=== PATIENT | male | born 1975 | race Caucasian/White ===

== ENCOUNTER 2016-11-27 03:23 | Observation (INO) | payer OTHER ==
[2016-11-27] VITALS (8 sets, daily range): BP systolic 103–114; BP diastolic 69–82; PULSE 84–107; RESP 18–22; O2SAT 94–98
[~2016-11-27] VITALS: Ht 175.3 cm; Wt 61.7 kg
[~2016-11-27 03:23] MED LIST: HALO2TAB PO; LORA-303 PO; METO-301 PO; ZOF8 PO
[2016-11-27] MEDS ORDERED: OXYC-465 PO (04:56)
[2016-11-27] MEDS ORDERED: DICY10CA56 PO (04:56)
[2016-11-27] MEDS ORDERED: ONDA-54 PO (04:56)
[2016-11-27] MEDS ORDERED: LISI10TA PO (04:56)
[2016-11-27] MEDS ORDERED: Alum-Mag Hydrox-Simeth 30 mL Suspension PO PRN (05:15)
[2016-11-27] MEDS ORDERED: Senna-Docusate 8.6-50 mg Tablet PO PRN (05:15)
[2016-11-27] MEDS ORDERED: Polyethylene Glycol (PEG) 17 Gm Powder PO PRN (05:15)
--- NOTE | 2016-11-27 05:36 | PCM.HPMED ---
Subjective Date of Service Nov 27, 2016 Primary Provider: Admitting Physician: Freddy Morse MD Primary Care Physician: Nopnadya Attending Physician: Freddy Morse MD Admit Status: Direct Admit (From [facility]) Chief Complaint: Dyspnea History of Present Illness: Gerald Sheth is a 41 yo man with Cyclic vomiting syndrome, Hypertension and Nicotine dependence transferred from [facility] with complaints of dyspnea with chest pressure Patient states he noticed increasing dyspnea since yesterday and seems to be acute onset. dyspnea worsened on lying down and improved with sitting up. He denies any leg swelling but had some chest pressure (someone standing on chest) . No radiation for the pain. 4/10 intensity. Denies any diaphoresis, nausea or vomiting. no fever or chills. Denies any nocturnal dyspnea. Last week he has a dry coughing as well as generalized weakness. His Mother may have same symptoms. 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 No prior history of myocardial infarction At [place] vitals 108/81 HR 106 RR 20 98% RA Labs showed WBC 9.54 Hgb 13.6 D dimer 2.2 BNP 1310 Na 141 BUN/Cr 8/0.7 glucose 105 Troponin < 0.05 CPK 81. EKG showed LBBB (new). CT chest showed no Pulmonary embolism Patient received Lasix IV, symptoms improved with nitro prior to transfer Cardiology was consulted who recommended transfer to [facility] for further workup Review of Systems: Pertinent positives as noted in HPI. All other systems were reviewed and are negative Allergies Coded Allergies: promethazine (Verified Allergy, Unknown, 09/07/15) acetaminophen (Verified Adverse Reaction, Mild, itching, 11/27/16) hydrocodone (Verified Adverse Reaction, Mild, itching, 11/27/16) Home Medications dicyclomine 10 ng PRN nausea Lisinopril 10 mg bid Zofran 8 mg PRN Oxycodone/APAP 7.5/325 1 tab q 6 hrs PRN PMH cyclic vomiting syndrome, extensive workup done a with no etiology Nicotine dependence Hypertension . Surgical History cholecystectomy Family History Aunt on Mother side, Maternal grandmother had Congestive heart failures Father from a Brain tumor Social History Hx Alcohol Use: Yes (last 2 days ago) Hx Tobacco Use: Yes Smoking Status: Current Every Day Smoker Living Arrangement: with Family (with Mother) Exam Vital Signs Vital Sign - Last Date Time Temp Pulse Resp B/P Pulse Ox O2 Delivery O2 Flow Rate FiO2 11/27/16 04:32 37.3 92 18 107/71 98 Nasal Cannula 2.00 Exam General: Alert, Oriented X3, Cooperative, No acute Distress. Talking in full sentences Eyes: PERRLA, Scleral Anicteric Mouth: Mouth Normal, Mucous Membranes Moist/[place] Neck: Supple, no Thyromegaly, trachea central. Chest & Lungs: Clear to auscultation & percussion, No adventitious breath sounds, no crackles, no wheeze Cardiovascular: Normal S1, Normal S2, No Murmurs/Rubs/Gallops, Regular Rate/ Rhythm, (No JVD, no peripheral edema) Pulses: Radial (present and equal), Dorsalis Pedi (present and equal) Abdomen: Soft, Non-tender, Non-distended, Normoactive bowel tones. Musculoskeletal: Unremarkable. Normal range of motion, no swollen or erythematous joints Extremities: No edema, no cyanosis, no clubbing. Skin: No rashes. Warm and dry, no erythematous areas Neurological: Grossly neurologically intact, Normal Speech, Sensation Intact Lymphatic: Lymph nodes Cervical and Axillary not palpable Assessment & Plan Gerald Sheth is a 41 yo man with Cyclic vomiting syndrome, Hypertension and Nicotine dependence transferred from [facility] with complaints of dyspnea with chest pressure 1. Acute Dyspnea likely Viral Cardiomyopathy. Present on admission Patient recently had a Viral illness with weakness and coughing. Risk factors for congestive heart failure includes smoking and chronic Hypertension. Some family history of cardiac disease. Pulmonary embolism ruled out with CT chest. If he does have heart failure, ischemia should be ruled out as a cause - monitor on telemetry - trending cardiac biomarkers - complete echo - diuretics with Lasix 40 mg daily (may need dose adjustment) - continued Lisinopril - checking TSH - monitor weight and fluid status 2 Hypertension, Chronic currently stable - Lisinopril dose lowed to avoid hypotension with the introduction of Lasix ( Hypotensive prior to arrival) - encouraged low salt diet 3. Cyclic Vomiting syndrome, Chronic currently without any vomiting - continue PRN antiemetic - outpatient follow up 4 Nicotine dependence. Ongoing Cessation discussed and encouraged - Nicotine patch on request - Acetaminophen as needed for mild pain/fever/headache - Bowel regimen as needed - Antiemetic as needed Patient admitted under inpatient status with expected length of stay > 2 midnights for severity of present symptoms, complexities of treatment plan and risk for adverse event . Resuscitation Status: CPR: Attempt Resuscitation Freddy Morse MD Nov 27, 2016 05:36
[2016-11-27] MEDS: Ondansetron 2 mg/mL 2 mL Inj IVPUSH PRN ×2 (05:53→09:07)
[2016-11-27] MEDS: oxyCODONE-Acetamin 5-325 mg Tablet PO PRN ×3 (05:58→20:08)
--- NOTE | 2016-11-27 06:21 | NUR ---
Admit Pt arrived to [facility] 2001 from [facility] via Ambulance. Pt is A&O and able to [place]. Pt orient to hospital, room and call light, pt will be independent in room. Pt c/o of nausea and abdominal pain, as well as chest tightness that increases with inspiration, aware. MED REC, admission all completed. Pt will be NPO and has an ECHO scheduled for the AM. VSS and Tele SR/T 90-110's.
[2016-11-27] MEDS: Sodium Chloride LOK Flush 10 mL Syringe IVFLUSH SCH ×3 (08:23→20:30)
[2016-11-27] MEDS: HYDROmorphone 0.5 mg/0.5 mL iSecure Syringe IVPUSH PRN ×6 (09:42→22:29)
[2016-11-27] MEDS ORDERED: 0.9% Sodium Chloride 50 ML ONE (10:15)
[2016-11-27] MEDS: Promethazine Inj 25 MG in Dextrose 5%-Pha MIX 50 ML IV PRN (10:18)
--- NOTE | 2016-11-27 14:32 | PCM.PNMED ---
Subjective Date of Service Nov 27, 2016 Subjective 41-year-old male with history of cyclic vomiting syndrome and alcohol abuse presents with acute respiratory failure with hypoxia, and new onset congestive heart failure The patient reports 1-2 months of dyspnea on exertion. No significant orthopnea or pedal edema. 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 During this time he has had no specific episode of infectious respiratory illness. Several weeks ago he reduced his usual habit of 1 quart of liquor per day, out of concern for his constitutional symptoms. He has had no chest pain. He awakened from sleep with a moderately worse episode of the dyspnea symptoms he has experienced over the past month. Exam Vital Signs Vital Sign - Last Date Time Temp Pulse Resp B/P Pulse Ox O2 Delivery O2 Flow Rate FiO2 11/27/16 12:09 93 20 112/75 97 Nasal Cannula 2.00 11/27/16 08:15 36.8 Intake and Output 11/26/16 11/26/16 11/27/16 Cumulative From/Thru 15:00 23:00 07:00 11/27/16 04:30 - 11/27/16 05:30 Intake Total 0 ml 0 ml Output Total 0 ml 0 ml Balance 0 ml 0 ml Intake Oral 0 ml 0 ml Output Urine Total 0 ml 0 ml # Bowel Movements 0 0 Exam General: Generally healthy-appearing, currently experiencing symptoms of his cyclic vomiting emesis HEENT: sclerae anicteric, oral mucosa difficult to assess Neck: no JVD Chest: clear to auscultation Cardiac: S1S2, regular, summation gallop versus S4, no murmur Abdomen: BS normal, currently with abdominal tenderness and emesis Extremities: No pitting edema Neuro: A&O, cranial nerves symmetric, motor strength 5/5, coordination normal IVs and Medications Medications Reviewed: Medications were reviewed in detail Lab and Diagnostics Labs from [facility] as noted in the admitting H&P, notable for elevated BMP, normal troponin. Assessment & Plan Acute and/or high-risk problems: #. Acute Dyspnea. New-onset acute CHF. Type uncertain at present. Possibly alcoholic versus hypertensive cardiomyopathy, less likely post viral, less likely ischemic. - monitor on telemetry - trending cardiac biomarkers - complete echo - Lasix 40 mg daily to target 1-2 L net negative fluid balance - continued Lisinopril - Beta bhanu if tolerated - monitor weight and fluid status - CHF education - Cardiology consult # Hypertension, Chronic currently stable - Lisinopril dose lowed to avoid hypotension with the introduction of Lasix ( Hypotensive prior to arrival) - encouraged low salt diet # Alcohol abuse. Patient reportedly tapered off of her past few weeks. No signs of alcohol withdrawal at this time - Monitor clinically #. Cyclic Vomiting syndrome, Chronic currently without any vomiting - continue his usual regimen of lorazepam, hydromorphone, promethazine (he is not allergic to promethazine) - outpatient follow up # Nicotine dependence. Ongoing Cessation discussed and encouraged - Nicotine patch on request # Euthyroid sick syndrome. Trivial abnormality of TSH only. Unlikely related to his probable cardiomyopathy. - Repeat in convalescent stage, - Acetaminophen as needed for mild pain/fever/headache - Bowel regimen as needed Patient admitted under inpatient status with expected length of stay > 2 midnights for severity of present symptoms, complexities of treatment plan and risk for adverse event . Pain Evaluation: Adequate Pain Control Resuscitation Status: CPR: Attempt Resuscitation Time spent 35 minutes Honorio Cardenas MD Nov 27, 2016 14:32
--- NOTE | 2016-11-27 14:47 | NUR ---
Social Work: Screen Note Data & Assessment: EMR Reviewed . Patient is a 41 y/o male that admitted for CHF (new diagnosis). Patient's NOK is Fide Grant [phone]. Patient does not have a documented DPOA. Patient's primary insurance is [facility] [facility]. Supervisor [employer] Department will continue to follow patient. Plan: It is anticipated that the patient will discharge home via POV. SW will continue to follow. lorrie Yeboah LMSW, KRISTIN
--- NOTE | 2016-11-27 14:58 | CONS ---
[address] [address] CONSULTATION REPORT PATIENT: WINDY SIMMONS : 1975 MR#: [id number] ADMIT: 11/27/2016 JOB ID: [id number] DATE OF SERVICE: 11/27/2016 CHIEF COMPLAINT: I was asked by Dr. Cardenas of the hospital team to consult on this patient given chest pressure and an abnormal EKG. HISTORY OF PRESENT ILLNESS: The patient is a 41-year-old man who has a history of cyclic vomiting syndrome as well as hypertension. Per discussion with his mother he has been feeling poorly, with decreased energy, over the past month or so. He has not really been complaining of increased shortness of breath but the energy has been a significant problem. On Monday of this week he developed a heaviness in his chest and this did not resolve, thus he ultimately went to the ED. In the ED he had a negative troponin, but an elevated D-dimer, and had a CT angiogram performed that did not show a PE. He also had some Lasix given to him for possible CHF. He had Toradol as well given for chest discomfort. He was going to be sent to [place] (but no beds were available there), thus he was transferred here. Since he has been here, he is doing about the same. Although he says he is somewhat more comfortable, he appears fatigued. He denies any problems with orthopnea, PND, lower extremity edema, palpitations. He had some lightheadedness, but has not had any falls. His chest x-ray showed mild vascular congestion in addition to cardiomegaly. PAST MEDICAL HISTORY/PROBLEM LIST: 1. Hypertension. 2. Cyclic vomiting syndrome. MEDICATIONS AT HOME: Include lisinopril, Prilosec, and Reglan. ALLERGIES: Hydrocodone, which caused itching. SOCIAL HISTORY: He is a smoker. He also drinks alcohol, although he admits to cutting down somewhat. He says he does not drink daily. FAMILY HISTORY: Speaking with his mother, there may be some positive history of heart problems in the family. REVIEW OF SYSTEMS: Constitutional: He reports generalized decreased energy, perhaps over the past month. GI: No problems with blood in his stool. Has a history of cyclic vomiting. : No dysuria, no hematuria. Pulmonary: No lung disease. No history of dyspnea on exertion. Cardiac: As per HPI. Derm: No rashes or skin breakdown. Heme: No easy bruising or bleeding. Endocrine: No history of diabetes mellitus. No heat or cold intolerance. Musculoskeletal: No joint pain or swelling. ENT: No difficultly swallowing. No sore throat. Ophtho: No vision changes. Psych: No acute issues. All other systems on a 12-point review of system are negative. PHYSICAL EXAMINATION: Blood pressure 112/75, heart rate 93, sats are 97% on 2 L. General: In no acute distress. Speaking in full sentences without apparent shortness of breath. Head and neck: Normocephalic, atraumatic. Vascular: Carotids without bruits. Distal pulses palpable. Heart: Regular, with an S3 gallop. Lungs: sound clear to auscultation. Back: No CVA tenderness to palpation. Abdomen: Soft, nondistended, nontender. Extremities: Warm. I do not appreciate peripheral edema. Good distal pulses. Skin: Without breakdown appreciated or rashes. Neuro: Alert and interactive. Gait is not tested. Psych: Appropriate mood and affect. Oropharynx: Mucous membranes moist. Ophtho: Grossly normal vision. STUDIES: EKG: I cannot find this in the chart, but it was interpreted as left bundle branch block. LABORATORY: Drawn at [facility] show white count 9.5 and H/H 13.6/41, platelets of 364,000. D-dimer was elevated, as noted, with a CT angio performed. BNP 1310, which is elevated. Glucose 105. BUN and creatinine 8 and 0.7. Sodium 141, potassium 4.3, chloride and bicarb 103 and 29, respectively. LFTs with an elevated alk phos, elevated AST, normal ALT. Troponin not elevated. CPK not elevated. IMPRESSION: The patient has been feeling poorly for the last month or so. He had decreased energy but does not really report increased dyspnea. However, he has not been very active. He denies orthopnea, PND, lower extremity edema. He has had some lightheadedness but no passing-out spells. Although I cannot find his EKG, it is reported as showing left bundle branch block. On exam he has an S3 gallop which would make us suspicious for him having a cardiomyopathy. He has an echo pending. PLAN: I will review the echocardiogram. He is currently on lisinopril and is getting diuresis, so I suspect he will improve with diuresis. One other lab that was obtained on him here shows a decreased TSH, therefore I would get the full thyroid panel and make sure that he is not hyperthyroid or borderline hyperthyroid. I will discuss further recommendations with the team once the echo is interpreted. CC: Dr. Cardenas I spent 60 minutes reviewing the chart notes, speaking with the patient and family and examining the patient. TERESSA
[2016-11-27 15:40] LABS: INR 1.06 ratio
[2016-11-27] MEDS ORDERED: Furosemide 10 mg/mL 4 mL Inj IVPUSH SCH (16:00)
--- NOTE | 2016-11-27 16:23 | PCM.CONPHA ---
Subjective Dyspnea Objective Vital Signs Date Time Temp Pulse Resp B/P Pulse Ox O2 Delivery O2 Flow Rate FiO2 11/27/16 16:13 36.7 88 18 103/69 97 Nasal Cannula 2.00 11/27/16 12:09 93 20 112/75 97 Nasal Cannula 2.00 11/27/16 10:16 107 11/27/16 08:15 36.8 84 22 114/80 94 Nasal Cannula 2.00 11/27/16 08:00 Supplement Oxygen 11/27/16 05:33 94 11/27/16 05:29 Supplement Oxygen 11/27/16 04:32 37.3 92 18 107/71 98 Nasal Cannula 2.00 Weight (Kilograms): 62.000 Height (Feet): 5 Height (Inches): 9.00 Test 11/27/16 05:32 11/27/16 05:33 11/27/16 14:46 11/27/16 15:14 Hold Ac Top Tube Received (Received) Thyroid Stimulating Hormone (TSH) 0.431uIU/mL (0.450-4.500) Troponin T < 0.010ug/L (0.0-0.011) Prothrombin Time 11.4sec (8.1-12.5) Prothromb Time International Ratio 1.06ratio Assessment/Plan Assessment/Plan Indication: post ventricular compaction therapy 2-3 target per surgery. INR 1.06 Initiating with one time dose of 5mg. CONCURRENT: ENOX 60 mg q12 GOAL INR: 2-3 Pharmacy will continue to follow daily. Thank you for consulting pharmacy in the care of this patient. Feliz Arias Nov 27, 2016 16:23
--- NOTE | 2016-11-27 17:59 | NUR ---
Pain/nausea/vomiting/anxiety The pt has an acute attack of N/V and anxiety this morning, that was eventually relieved with IV dilaudid, phenergren, and ativan. The pt slept most of the day with regular medication interventions to stay on top of the pain and nausea. Cardio is following, with an echo done today.
[2016-11-28] MEDS: HYDROmorphone 0.5 mg/0.5 mL iSecure Syringe IVPUSH PRN ×4 (00:35→06:25)
[2016-11-28 00:36] VITALS: BP 119/84; PULSE 87; RESP 16; O2SAT 97
[2016-11-28 03:44] LABS: INR 1.03 ratio
[2016-11-28 04:25] LABS: TROPONIN T 0.01 ug/L (0.0-0.011)
[2016-11-28] MEDS: oxyCODONE-Acetamin 5-325 mg Tablet PO PRN ×3 (04:29→16:40)
[2016-11-28 05:20] VITALS: BP 128/93; PULSE 109; RESP 16; O2SAT 97
--- NOTE | 2016-11-28 06:21 | NUR ---
Pain / Hypotensive / HS Lisinopril Held/ Tele Pt c/o abdomen pain 05/22, Medicated with IV Dilaudid 0.5mg every 2 hours. Pt also receiving PO Percocet 2 tabs every 6 hours X 2 doses and IV Ativan every 4 hours. N&V seems to be under control tonight, no bouts of N&V tonight. BPs slightly hypotensive with SBPs in the low 100s, HS dose of Metoprolol 12.5mg administered, but HS Lisinopril dose held r/t low SBP. BPs improved with SBPs in the 110-120s thereafter. No c/o chest pain, Tele SR-ST 80-100s with IVCD per Senior Risk Manager.
[2016-11-28 08:00] VITALS: BP 124/83; RESP 22; O2SAT 96
[2016-11-28] MEDS: Sodium Chloride LOK Flush 10 mL Syringe IVFLUSH SCH ×2 (08:16→16:37)
--- NOTE | 2016-11-28 08:40 | PCM.PNMED ---
Subjective Date of Service Nov 28, 2016 Subjective 41-year-old male with history of cyclic vomiting syndrome, abdominal pain syndrome and alcohol abuse presents with acute respiratory failure with hypoxia , and new onset congestive heart failure States he has not slept in 2 days. Endorses abdomen pain and nausea, which are typical but slightly worse than usual for him. Shortness of breath is not noticeable at rest. Also complains of hip pain. Exam Vital Signs Vital Sign - Last Date Time Temp Pulse Resp B/P Pulse Ox O2 Delivery O2 Flow Rate FiO2 11/28/16 08:00 36.7 22 124/83 96 Room Air 11/28/16 05:20 109 11/27/16 16:13 2.00 Intake and Output 11/27/16 11/27/16 11/28/16 Cumulative From/Thru 15:00 23:00 07:00 11/27/16 04:30 - 11/28/16 06:39 Intake Total 660 ml 1460 ml 2120 ml Output Total 1000 ml 375 ml 1375 ml Balance -340 ml 1085 ml 745 ml Intake Oral 660 ml 1460 ml 2120 ml Output Urine Total 1000 ml 375 ml 1375 ml # Bowel Movements 0 Lab and Diagnostics Result Diagram: 11/28/16 0230 Assessment & Plan Acute and/or high-risk problems: #. Acute Dyspnea. New-onset acute CHF. Type uncertain at present. The patient reports 1-2 months of dyspnea on exertion. No significant orthopnea or pedal edema. 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 During this time he has had no specific episode of infectious respiratory illness. Several weeks ago he reduced his usual habit of 1 quart of liquor per day, out of concern for his constitutional symptoms. He has had no chest pain. He awakened from sleep with a moderately worse episode of the dyspnea symptoms he has experienced over the past month. Possibly alcoholic versus hypertensive cardiomyopathy, less likely post viral, less likely ischemic. Echocardiogram on 11/27 most consistent with ventricular compaction syndrome, although patient has no prior history of cardiac issues. - Discontinue telemetry -Discontinue IV Lasix - continue Lisinopril, increase to 5 twice a day - Beta bhanu if tolerated - monitor weight and fluid status - CHF education - Cardiology consult for outpatient recommendations - Hopefully discharge on 11/28 # Hypertension, Chronic currently stable - Lisinopril dose lowed to avoid hypotension with the introduction of Lasix ( Hypotensive prior to arrival) - encouraged low salt diet # Alcohol abuse. Patient reportedly tapered off of her past few weeks. No signs of alcohol withdrawal at this time - Monitor clinically #. Cyclic Vomiting syndrome, Chronic. Currently without any vomiting, but endorses significant abdomen pain. Requesting opioids regularly and eyes are drooping on exam. He does not have an outpatient prescription for opioids seen a GI specialist at one year ago but has not been able to follow-up further. - continue his usual regimen of lorazepam, promethazine (he is not allergic to promethazine) - Discontinue IV hydromorphone; patient is advised of this - Okay to continue by mouth Percocet for abdomen pain; but no plans for prescription at discharge - outpatient follow up # Nicotine dependence. Ongoing - Cessation discussed and encouraged - Nicotine patch on request # Euthyroid sick syndrome. Trivial abnormality of TSH only. Unlikely related to his probable cardiomyopathy. - Repeat labs are pending - Acetaminophen as needed for mild pain/fever/headache - Bowel regimen as needed Patient admitted under inpatient status with expected length of stay > 2 midnights for severity of present symptoms, complexities of treatment plan and risk for adverse event . Resuscitation Status: CPR: Attempt Resuscitation Time spent Patient subsequently discharged. See discharge summary for 11/28/16 Honorio Cardenas MD Nov 28, 2016 08:40
--- NOTE | 2016-11-28 11:17 | DRSVH ---
Version 2 [facility] [address] [place] [address] Echocardiogram Report Name: WINDY SIMMONS MStudy Date: 11/27/2016 Height: 69 in Hospital Exam Location: [facility] Weight: 137 lb Gender: Male BSA: 1.8 m2 : 1975 Age: 41 yrs BP: 107/71 mmHg Reason For Study: Congestive Heart Failure Ordering Physician: Performed By: [facility] Interpretation Summary 1. Dilated left ventricle with global hypokinesis but more significant hypokinesis of the septal segments. Estimated EF is 30-35% 2. No obvious thrombus is appreciated, however, prominent trabeculations are noted - MRI would be helpful to further evaluate for ventricular noncompaction 3. Normal right ventricular size and systolic function. Estimated right atrial pressure is low normal 4. Mild to moderate mitral regurgitation There is no old study for comparison Procedure: A two-dimensional transthoracic echocardiogram with color flow and Doppler was performed. The study quality was technically good. There is no prior echocardiogram noted for this patient. The heart rate ranged between 107-112 bpm during the study. Left Ventricle: The left ventricle is mildly dilated. There is normal left ventricular wall thickness. No obvious thrombus, however, prominent trabeculations are noted in the apical segments. The ejection fraction is estimated to be 30-35%. The septal segments appear more hypokinetic than the other segments. Diastolic function could not be accurately assessed due to tachycardia. Right Ventricle: The right ventricle is normal in size and function. Atria: The left atrium is severely dilated. Right atrial size is normal. The interatrial septum is intact with no evidence for an atrial septal defect. No color doppler evidence for an ASD. Mitral Valve: The mitral valve leaflets appear mildly thickened, but open well. Somewhat flat closure plane. There is mild to moderate mitral regurgitation. Aortic Valve: The aortic valve is trileaflet. The aortic valve opens well. No aortic regurgitation is present. Tricuspid Valve: The tricuspid valve leaflets are thin and pliable. No appreciable tricuspid regurgitation. Pulmonic Valve: The pulmonic valve is not well seen, but is grossly normal. There is trace pulmonic regurgitation. Great Vessels: The aortic root is normal size. The dimensions of the ascending aorta are normal. The IVC is of normal diameter and collapses greater than 50% with a sniff. This suggests a low right atrial pressure of 3 mm Hg. Pericardium/ Pleura There is no pericardial effusion. MMode/2D Measurements & Calculations LVIDd: 6.0 cm LA dimension RA long axis: 5.0 cm Ao root diam: 3.2 cm LVIDs: 5.2 cm Aortic Jxn: 2.7 cm FS: 12.7 % LA A2 area RA area: 13.7 cm asc Aorta Diam: 3.5 cm IVSd: 0.88 cm RA vol: 32.3 ml LVPWd RA : 18.4 ml/m : 0.9cm LA A4 area RVDd major: 5.9 cm LA length (vol) LA vol: 127.2 ml LA vol index : 72.3 ml/m2 LVAd ap4 LVAd ap2 LV martinez. diameter/BSA LV sys. diameter/BSA : 37.0 2m : 36.9 cm (cm/m^2): 3.4 (cm/m^2): 3.0 LVLd ap2: 8.8 cm EDV(MOD-sp2) EDV(sp2-el) : 134.0 ml RVD1 (basal) RVD2 (mid) : 2.8 cm Doppler Measurements & Calculations Ao V2 max MV P1/2t PA V2 max MV V2 mean : 136.6 cm/sec : 67.4 msec : 88.9 cm/sec : 62.6 cm/sec Ao max P.5 mmHg MVA(traced) PA mean PG MV mean PG Ao mean P.6 mmHg : 0.18 cm2 PA Accel Time MV V2 VTI : 22.5 cm MV P1/2t max beena Ao V2 mean PA V2 mean : 102.3 cm/sec : 57.0 cm/sec MVA(P1/2t): 3.3 cm2 Ao V2 VTI: 21.9 cm Reading Physician:01:[id number] PM
--- NOTE | 2016-11-28 11:54 | PROG NOTE ---
[address] [address] PROGRESS NOTE PATIENT: WINDY SIMMONS : 1975 MR#: [id number] ADMIT: 11/27/2016 JOB ID: [id number] DATE: 11/28/2016 CHIEF COMPLAINT: The patient came in with chest pain, abnormal EKG. He now has findings of a cardiomyopathy which by some appearances looks like it might be a ventricular noncompaction. He is not complaining of shortness of breath. He is complaining of chest pain that is worse with deep inspiration. He has also been complaining of some abdominal discomfort and nausea. PHYSICAL EXAMINATION: Blood pressure is 124/83. He is afebrile. Sats are 96% on room air. General: Appearing uncomfortable, but in no acute distress. Head and neck exam: Normocephalic, atraumatic. Heart exam: Regular rate and rhythm. Lungs sound clear. Abdomen: Soft. Extremities: Warm. I do not appreciate edema. CURRENT MEDICATIONS: Include: 1. Lorazepam. 2. Lisinopril 5 b.i.d. 3. Enoxaparin 60 q.12 h. 4. Metoprolol 12.5 b.i.d. 5. Warfarin. 6. Lasix 40 IV push. CURRENT INS AND OUTS: Show some negative values. LABORATORIES: Today, show all negative troponins. Sodium 137, potassium 4.1, chloride and bicarb 99 and 24, respectively. BUN and creatinine 13.47. LDL 79, HDL 49. I do not see any Hematology. I do see a repeat TSH and free T4 which are within normal limits. IMPRESSION: 1. The patient has findings of cardiomyopathy, which by appearance might be related to ventricular noncompaction. Typical recommendations for that are treatment with beta blockers, as he is on. Coreg would be a very good choice if his blood pressure can tolerate it. At this juncture, because of the cardiomyopathy itself, he might be at risk for thromboembolic events, so we are anticoagulating him at this time. 2. For further workup of his cardiomyopathy, I would recommend an MRI, and this can be done as an outpatient in a facility such as the [facility]. Regarding his chest discomfort, it sounds pleuritic in nature. He has ruled out by serial cardiac markers. Stress testing may be considered. He has other pain which is being medically managed at this time. As an inpatient, we will continue to monitor him on telemetry and as an outpatient, will plan for an extended period of monitoring to rule any potential arrhythmias in this gentleman. Given his EF (and the possibility of ventricular noncompaction), he will be considered for an AICD MTDD
[2016-11-28] MEDS ORDERED: 0.9% Sodium Chloride 250 ML ONE (12:24)
[2016-11-28] MEDS: Promethazine Inj 25 MG in Dextrose 5%-Pha MIX 50 ML IV PRN (12:30)
--- NOTE | 2016-11-28 13:45 | DRSVH ---
PROCEDURE: X-RAY RIGHT HIP COMPLETE, MINIMUM TWO VIEWS ([id number]) INDICATIONS: bilateral hip pain TECHNIQUE: 2 views of the hip were acquired. COMPARISON: None. FINDINGS: Bones: No fractures or dislocations. No suspicious bony lesions. The visualized pelvic ring appear s intact. No joint space narrowing. Mild subchondral sclerosis and spurring Soft tissues: No suspicious soft tissue calcifications or masses. IMPRESSION: Mild right hip subchondral sclerosis and spurring Dictated by: Gabo Avila M.D. on 11/28/2016 at 13:43 Approved by: Gabo Avila M.D. on 11/28/2016 at 13:43
--- NOTE | 2016-11-28 13:46 | DRSVH ---
PROCEDURE: X-RAY LEFT HIP COMPLETE, MINIMUM TWO VIEWS ([id number]) INDICATIONS: bilateral hip pain TECHNIQUE: 2 views of the hip were acquired. COMPARISON: None. FINDINGS: Bones: No fractures or dislocations. No suspicious bony lesions. The visualized pelvic ring appear s intact. No definite joint space narrowing. Subchondral sclerosis and spurring. Soft tissues: No suspicious soft tissue calcifications or masses. IMPRESSION: Minimal degenerative changes as above Dictated by: Gabo Avila M.D. on 11/28/2016 at 13:44 Approved by: Gabo Avila M.D. on 11/28/2016 at 13:44
--- NOTE | 2016-11-28 13:47 | DRSVH ---
PROCEDURE: X-RAY LUMBAR SPINE, 2 OR 3 VIEW INDICATIONS: bilateral hip pain TECHNIQUE: 3 views of the lumbar spine were acquired. COMPARISON: None. FINDINGS: Bones: Diffuse endplate spurring and sclerosis. Mild diffuse facet disease. No definite disc space na rrowing. No fracture or focal osseous destruction Soft tissues: Overlying bowel gas pattern is normal. Cholecystectomy clips noted No suspicious soft tissue calcifications. IMPRESSION: Mild diffuse lumbar disc degeneration and facet arthropathy Dictated by: Gabo Avila M.D. on 11/28/2016 at 13:46 Approved by: Gabo Avila M.D. on 11/28/2016 at 13:46
--- NOTE | 2016-11-28 15:40 | NUR ---
took over patient care at 3pm
[2016-11-28] MEDS ORDERED: WARF2.5T82 PO (16:58)
[2016-11-28] MEDS ORDERED: METO25TA99 PO (16:58)
[2016-11-28] MEDS ORDERED: FURO-129 PO (17:05)
--- NOTE | 2016-11-28 17:06 | PCM.DIMED ---
Discharge Instructions Date of Service Nov 28, 2016 Dates of Hospitalization Nov 27, 2016 at 04:24 Discharge Diagnosis Discharge Diagnosis Acute diastolic congestive heart failure; ventricular compaction syndrome; cyclic vomiting syndrome, alcohol dependence Medication Instructions He has been giving the initial doses of warfarin, a blood thinner to prevent blood clots in your heart. Your blood thinning (INR test) is not yet in the optimum range. It will take approximately 1 week for the warfarin dose to stabilize. Is very important that you follow up in the next few days with the primary care provider to have your INR test performed in further warfarin dose adjustments made. She did not follow-up carefully with her warfarin there is risk of bleeding or clotting. In addition to the lisinopril that you have previously taken for high blood pressure, he will receive prescriptions for metoprolol 50 mg once per day and Lasix 20 mg once per day. These medications should improve your breathing. 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 Important that you follow-up soon to have your blood pressure checked and to see if your symptoms are being improved with the current medications. Diet Heart Healthy (low-sodium) Activity No restrictions Call your provider Shortness of breath Patient Instructions Maintain a low-salt diet. Take medications regularly. Contact your primary care provider soon for follow-up appointment Follow-up plan The patient should receive the phone number for cardiology clinic and call Dr. Jimenez for a follow-up visit within 1-2 weeks for his new diagnosis of congestive heart failure. The patient should contact [facility] for a follow- up this week due to new medications including warfarin, to have his INR checked and warfarin dose adjusted appropriately. Follow-up Provider: Kassie Jimenez MD Follow-up with PCP in: 2 weeks Honorio Cardenas MD Nov 28, 2016 17:05
--- NOTE | 2016-11-28 17:59 | NUR ---
Discharge The pt left the unit at 1740 with all his belongings. The pt had started becoming very agitated and paranoid, and per the pt's step dad, the pt has been known to get aggressive. The pt was subsequently discharged due to no pressing medical need to keep him here. He left on foot to a private vehicle with his mother and step dad. The pt left A&O, with moderate anxiety, agitation and paranoia. He verbalized understanding of all discharge teaching, and left with his packet of info including follow up appointment info and new scripts.
--- NOTE | 2016-11-28 18:33 | PCM.DC.MED ---
Discharge Summary Date of Service Nov 28, 2016 Dates of Hospitalization Date of Hospital Admission Nov 27, 2016 at 04:24 Date of Discharge: Nov 28, 2016 Providers: Admitting Physician: Freddy Morse MD Primary Care Physician: Jenna Attending Physician: Freddy Morse MD Diagnosis at Time of Discharge Diagnosis at Time of Discharge Acute diastolic congestive heart failure; ventricular compaction syndrome; cyclic vomiting syndrome, alcohol dependence Consultations Cardiology IMPRESSION: 1. The patient has findings of cardiomyopathy, which by appearance might be related to ventricular noncompaction. Typical recommendations for that are treatment with beta blockers, as he is on. Coreg would be a very good choice if his blood pressure can tolerate it. At this juncture, because of the cardiomyopathy itself, he might be at risk for thromboembolic events, so we are anticoagulating him at this time. He is currently on good cardiac medications, although again, we might consider changing him to Coreg if his blood pressure can tolerate it. 2. For further workup of his cardiomyopathy, I would recommend an MRI, and this can be done as an outpatient in a facility such as the [facility]. Regarding his chest discomfort, it sounds pleuritic in nature. He has ruled out by serial cardiac markers. He has some others pain which is being medically managed at this time. As an outpatient, we will continue to monitor him on telemetry and as an outpatient, will plan for an extended period of monitoring to rule any potential arrhythmias in this gentleman. Kassie Jimenez MD 11/28/16 1131 Procedures Cardiac Echo Impression Echocardiogram Report Name: WINDY SHETH MStudy Date: 11/27/2016 Height: 69 in Hospital Exam Location: [facility] Weight: 137 lb Gender: Male BSA: 1.8 m2 : 1975 Age: 41 yrs BP: 107/71 mmHg Reason For Study: Congestive Heart Failure Ordering Physician: [facility]formed [facility] Interpretation Summary 1. Dilated left ventricle with global hypokinesis but more significant hypokinesis of the septal segments. Estimated EF is 30-35% 2. No obvious thrombus is appreciated, however, prominent trabeculations are noted - MRI would be helpful to further evaluate for ventricular noncompaction 3. Normal right ventricular size and systolic function. Estimated right atrial pressure is low normal 4. Mild to moderate mitral regurgitation There is no old study for comparison . Brief History History of Present Illness (per admission note): Windy Sheth is a 41 yo man with Cyclic vomiting syndrome, Hypertension and Nicotine dependence transferred from [facility] with complaints of dyspnea with chest pressure Patient states he noticed increasing dyspnea since yesterday and seems to be acute onset. dyspnea worsened on lying down and improved with sitting up. He denies any leg swelling but had some chest pressure (someone standing on chest) . No radiation for the pain. 4/10 intensity. Denies any diaphoresis, nausea or vomiting. no fever or chills. Denies any nocturnal dyspnea. Last week he has a dry coughing as well as generalized weakness. His Mother may have same symptoms. 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 No prior history of myocardial infarction At [facility] vitals 108/81 HR 106 RR 20 98% RA Labs showed WBC 9.54 Hgb 13.6 D dimer 2.2 BNP 1310 Na 141 BUN/Cr 8/0.7 glucose 105 Troponin < 0.05 CPK 81. EKG showed LBBB (new). CT chest showed no Pulmonary embolism Patient received Lasix IV, symptoms improved with nitro prior to transfer Cardiology was consulted who recommended transfer to [facility] for further workup . Hospital Course Acute and/or high-risk problems: #. Acute Dyspnea. New-onset acute CHF. Type uncertain at present. The patient reports 1-2 months of dyspnea on exertion. No significant orthopnea or pedal edema. 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 During this time he has had no specific episode of infectious respiratory illness. Several weeks ago he reduced his usual habit of 1 quart of liquor per day, out of concern for his constitutional symptoms. He has had no chest pain. He awakened from sleep with a moderately worse episode of the dyspnea symptoms he has experienced over the past month. Her echo Cardiogram noted a ventricular compaction anatomy with some degree of cardiomyopathy. Possibly alcoholic versus hypertensive stress on underlying anatomy. - continue Lisinopril, 20 mg per day; previously on this med for hypertension -He has tolerated 25 mg metoprolol, -Mild diuresis but his clinical exam is not significantly fluid overloaded - Initiate warfarin therapy for thrombotic risk due to ventricular compaction syndrome - CHF education - Cardiology consult for outpatient recommendations - Discharge on 11/28 - ) Follow-up with PCP or cardiology in within 1 week due to new diagnosis of congestive heart failure and initiation of warfarin therapy. # Hypertension, Chronic currently stable - Lisinopril dose lowed to avoid hypotension with the introduction of Lasix ( Hypotensive prior to arrival) - encouraged low salt diet # Alcohol abuse. Patient reportedly tapered off of her past few weeks. No signs of alcohol withdrawal at this time - Monitor clinically #. Cyclic Vomiting syndrome, Chronic. Currently without any vomiting, but endorses significant abdomen pain. Requesting opioids regularly and eyes are drooping on exam. He does not have an outpatient prescription for opioids seen a GI specialist at one year ago but has not been able to follow-up further. - continue his usual regimen of lorazepam, promethazine (he is not allergic to promethazine) - Okay to continue by mouth Percocet for abdomen pain; but no plans for prescription at discharge - outpatient follow up planned at [facility], patient previously seen the #. Possible drug-seeking behavior. Patient was noted to go outside hospital against advice of staff. He appeared somewhat encephalopathic either due to prescribed meds or other substances. # Nicotine dependence. Ongoing - Cessation discussed and encouraged - Nicotine patch on request # Euthyroid sick syndrome. Trivial abnormality of TSH only. Unlikely related to his probable cardiomyopathy. - Repeat labs are normal Exam Vital Signs (Last) Date Time Temp Pulse Resp B/P Pulse Ox O2 Delivery O2 Flow Rate FiO2 11/28/16 08:00 36.7 22 124/83 96 Room Air 11/28/16 05:20 109 11/27/16 16:13 2.00 Exam General: Generally healthy-appearing, drooping eyelids mildly confused HEENT: sclerae anicteric, oral mucosa difficult to assess Neck: Clearly no JVD Chest: clear to auscultation Cardiac: S1S2, regular, summation gallop versus S4, no murmur Abdomen: BS normal, currently with abdominal tenderness and emesis Extremities: No pitting edema Neuro: A&O, cranial nerves symmetric, motor strength 5/5, coordination normal Test 11/27/16 05:32 11/27/16 05:33 11/28/16 02:30 Hold Ac Top Tube Received (Received) Prothrombin Time 11.0sec (8.1-12.5) Prothromb Time International Ratio 1.03ratio Sodium Level 137mEq/L (134-144) Potassium Level 4.4mEq/L (3.5-5.2) Chloride Level 99mEq/L (97-108) Carbon Dioxide Level 24mmol/L (18-29) Blood Urea Nitrogen 13mg/dL (6-24) Creatinine 0.47mg/dL (0.76-1.27) Estimat Glomerular Filtration Rate 209mL/min (>59) Glucose Level 90mg/dL (60-99) Calcium Level 8.7mg/dL (8.5-10.1) Troponin T 0.010ug/L (0.0-0.011) Pro-B-Type Natriuretic Peptide 835.3pg/mL (0-86) Triglycerides Level 84mg/dL (0-149) Cholesterol Level 145mg/dL (100-199) LDL Cholesterol, Calculated 79.200mg/dL (0-99) VLDL Cholesterol 16.800mg/dL HDL Cholesterol 49mg/dL (>39) Cholesterol/HDL Ratio 2.96 (0.0-4.4) Thyroid Stimulating Hormone (TSH) 1.390uIU/mL (0.450-4.500) Free Thyroxine 1.32ng/dL (0.82-1.77) Discharge Medications Discharge Medications Furosemide (Lasix) 20 Mg Tablet 20 MG PO DAILY Prescribed by: FATOUMATA MENDEZ MD Metoprolol Succinate ER (Metoprolol Succinate ER) 25 Mg Tab.er.24h 25 MG PO DAILY Prescribed by: FATOUMATA MENDEZ MD Warfarin Sodium (Warfarin Sodium) 2.5 Mg Tablet 5 MG PO DAILY Initial dose is 5 mg daily until 11/30/16, after this you should have dose adjusted. Take each evening. Prescribed by: FATOUMATA MENDEZ MD As needed Dicyclomine (Bentyl) 10 Mg Capsule 10 MG PO DIRECTED PRN PRN For Nausea ( Reported) Lisinopril (Lisinopril) 10 Mg Tablet 10 MG PO BID PRN PRN HYPERtension (Reported ) Ondansetron (Ondansetron) 8 Mg Tablet 8 MG PO DIRECTED PRN PRN For Nausea ( Reported) oxyCODONE-Acetaminophen 7.5-325 mg (oxyCODONE-Acetaminophen 7.5-325 mg) 1 Each Tablet 1 TAB PO Q6H PRN PRN For Pain (Reported) Additional med instructions He has been giving the initial doses of warfarin, a blood thinner to prevent blood clots in your heart. Your blood thinning (INR test) is not yet in the optimum range. It will take approximately 1 week for the warfarin dose to stabilize. Is very important that you follow up in the next few days with the primary care provider to have your INR test performed in further warfarin dose adjustments made. She did not follow-up carefully with her warfarin there is risk of bleeding or clotting. In addition to the lisinopril that you have previously taken for high blood pressure, he will receive prescriptions for metoprolol 50 mg once per day and Lasix 20 mg once per day. These medications should improve your breathing. They may need to be adjusted at upcoming visits with your distributor of directories or your primary care provider. Important that you follow-up soon to have your blood pressure checked and to see if your symptoms are being improved with the current medications. Followup Plan Follow-up plan The patient should receive the phone number for cardiology clinic and call Dr. Jimenez for a follow-up visit within 1-2 weeks for his new diagnosis of congestive heart failure. The patient should contact [facility] for a follow- up this week due to new medications including warfarin, to have his INR checked and warfarin dose adjusted appropriately. Discharge Diet: Heart Healthy (low-sodium) Discharge Activity: No restrictions Patient Instructions Maintain a low-salt diet. Take medications regularly. Contact your primary care provider soon for follow-up appointment Follow-up Provider: Kassie Jimenez MD Follow-up with PCP in: 2 weeks Time spent 35 minutes copies to: Kassie Jimenez MD; [facility] Fatoumata Mendez MD Nov 28, 2016 17:07
--- NOTE | 2016-11-29 13:17 | NUR ---
Follow up phone for CHF patients Date: 11/29/16 Time: 1240 no answer; phone unable to receive voicemail chf edu packet sent to home address per dc instructions, pt to establish care at cardio in 2 weeks; also to establish care with PCP Information Discussed: Questions patient had:
== END 2016-11-28 17:41 | disposition home or self-care (01) ==
LOC: PCC 04:24 → INTOOBSV 04:24
PROVIDERS: ADMIT Hospitalist; ATTEND Hospitalist
DX: I50.31 Acute diastolic (congestive) heart failure (principal); I42.8 Other cardiomyopathies; G43.A0 Cyclical vomiting, in migraine, not intractable; F17.200 Nicotine dependence, unspecified, uncomplicated; E07.81 Sick-euthyroid syndrome; F10.20 Alcohol dependence, uncomplicated; I10 Essential (primary) hypertension
CPT/HCPCS: 36415; 72100; 73502; 80048; 80061; 82746; 83880; 84439; 84443; 84484; 85610; 93005; C8929; G0378; G0379; J1170; J1650; J2060; J2405; J2550; J7050

== ENCOUNTER 2016-12-01 04:27 | Emergency (ER) | payer OTHER ==
[~2016-12-01] VITALS: Ht 175.3 cm; Wt 63.6 kg
[~2016-12-01 04:27] MED LIST changes: +DICY10CA56 PO; +FURO-129 PO; -HALO2TAB PO; +LISI10TA PO; -LORA-303 PO; -METO-301 PO; +METO25TA99 PO; +ONDA-54 PO; +OXYC-465 PO; +WARF2.5T82 PO; -ZOF8 PO
[2016-12-01 04:30] VITALS: BP 155/110; PULSE 112; RESP 24; O2SAT 99
[2016-12-01] MEDS ORDERED: Ondansetron 2 mg/mL 2 mL Inj ONE (04:54)
[2016-12-01] MEDS ORDERED: Ondansetron 2 mg/mL 2 mL Inj IVPUSH ONE (05:00)
[2016-12-01] MEDS ORDERED: Haloperidol 5 mg/mL Inj IV ONE (05:00)
[2016-12-01 05:07] LABS: BASOPHILS % (AUTO) 0.2 % (0-3); EOSINOPHILS % (AUTO) 0 % (0-5); MONOCYTES % (AUTO) 2.4 % (4-12); Mean Corpuscular Hemoglobin 33.5 pg (27.0-35.0); Mean Corpuscular Volume 95.4 fL (81-100); NEUTROPHILS % (AUTO) 85.4 % (40-74); Platelet Count 396 bil/L (150-400)
[2016-12-01 05:25] LABS: TROPONIN T 0.01 ug/L (0.0-0.011)
[2016-12-01 05:36] LABS: Magnesium 1.5 mg/dL (1.6-2.6)
[2016-12-01 06:04] LABS: INR 1.11 ratio
[2016-12-01] MEDS ORDERED: Furosemide 10 mg/mL 4 mL Inj IVPUSH ONE (06:30)
[2016-12-01] MEDS ORDERED: MeTOProlol 1 mg/mL 5 mL Inj IVPUSH ONE ×2 (06:30→07:40)
--- NOTE | 2016-12-01 06:39 | ED.REPORT ---
HPI-General Illness Date of Service Dec 01, 2016 ED Provider: Georges Cespedes DO Patient is a 41 year old male with a history of cyclic vomiting on Coumadin who presents to the ED via EMS complaining of sharp epigastric pain onset 1999 last night. His pain radiates to his upper back. Associated symptoms include vomiting. He denies rash, diarrhea, or any other symptoms. He has had similar symptoms before that were stress induced. His symptoms are normally managed with Zofran, Ativan, and Dilaudid. He was not able to take his Coumadin yesterday or his night time medications. He was admitted to the hospital 2 days ago and started on Coumadin for a "heart defect". The defect is described as "shreddy heart lining" that has presented at 13 mo old, 10 years old, 20 years old, and now. Nursing Notes Stated Complaint: ABDOMINAL/ CHEST PAIN Chief Complaint: Chest Pain Nursing Notes Reviewed: Yes Allergies: Coded Allergies: acetaminophen (Verified Adverse Reaction, Mild, itching, 12/01/16) hydrocodone (Verified Adverse Reaction, Mild, itching, 12/01/16) Scheduled Furosemide (Lasix) 20 Mg Tablet 20 MG PO DAILY Magnesium Chloride (Slow-Mag) 64 Mg Tablet 64 MG PO DAILY Metoprolol Succinate ER (Metoprolol Succinate ER) 25 Mg Tab.er.24h 25 MG PO DAILY Warfarin Sodium (Warfarin Sodium) 2.5 Mg Tablet 5 MG PO DAILY Initial dose is 5 mg daily until 11/30/16, after this you should have dose adjusted. Take each evening. Scheduled PRN Dicyclomine (Bentyl) 10 Mg Capsule 10 MG PO DIRECTED PRN PRN For Nausea Lisinopril (Lisinopril) 10 Mg Tablet 10 MG PO BID PRN PRN HYPERtension Ondansetron (Ondansetron) 8 Mg Tablet 8 MG PO DIRECTED PRN PRN For Nausea oxyCODONE-Acetaminophen 7.5-325 mg (oxyCODONE-Acetaminophen 7.5-325 mg) 1 Each Tablet 1 TAB PO Q6H PRN PRN For Pain General Time Seen by MD: 05:38 Chief Complaint Abdominal pain Hx Obtained From: Patient, Other family... Arrived By: Ambulance Sudden in Onset?: Yes Onset Occurred: 9 - 12 hours ago Symptom Duration: Since onset Recent Healthcare: Recent hospitalization Similar Sx Previous: Yes Past Medical History Past Medical History Anxiety Heart defect- nonspecific cyclic vomiting Reports: Congestive heart failure, Hypertension Past Surgical History Testicular hernia repair Hand and finger surg. Adnoids Reports: Cholecystectomy Smoking History Current Every Day Smoker Social History Alcohol Use: 1-3 per week Drug Use: Denies drug use Other Social History: Smokeless tobacco, Good social support Ambulatory Status Independent Review of Systems Full Review of Systems Constitutional: Denies: Fever GI: Reports: Abdominal pain, Nausea, Vomiting, Denies: Diarrhea Musculoskeletal: Reports: Back pain Skin: Denies Rash Complete sys rev & neg: except as marked. Physical Exam Vital Signs Vital Signs Date Time Temp Pulse Resp B/P Pulse Ox O2 Delivery O2 Flow Rate FiO2 12/01/16 10:18 94 16 107/52 96 Room Air 12/01/16 08:12 96 15 122/65 98 12/01/16 07:03 105 20 151/101 98 Room Air 12/01/16 04:30 36.9 112 24 155/110 99 Room Air Initial VS: Reviewed Head / Eyes: Atraumatic, Normocephalic Neck: Full range of motion Respiratory: No respiratory distress Skin: Warm, Dry Neurologic: Alert, Oriented, Nonfocal Psychiatric: Mood/affect normal, Behavior normal, Normal thought content General/Constitutional: Awake, Alert Distress / Hydration: Positive: Distress moderate Thin Hypertensive Heart Rate / Rhythm: Positive: Tachycardia Abdomen: Soft, Non-tender Actively vomiting bilious contents Interpretation & Diagnostics Lab Results Interpretation Result Diagram: 12/01/16 0443 12/01/16 0443 Test 12/01/16 04:43 12/01/16 04:46 12/01/16 07:55 White Blood Count 9.6th/mm3 (3.8-10.1) Red Blood Count 4.33mil/mm3 (4.40-5.80) Hemoglobin 14.5g/dL (13.8-17.2) Hematocrit 41.3% (41.0-50.0) Mean Corpuscular Volume 95.4fL (81-100) Mean Corpuscular Hemoglobin 33.5pg (27.0-35.0) Mean Corpuscular Hemoglobin Concent 35.1% (32.0-37.0) Red Cell Distribution Width 13.0% (12.3-15.4) Platelet Count 396bil/L (150-400) Neutrophils (%) (Auto) 85.4% (40-74) Lymphocytes (%) (Auto) 11.9% (14-46) Monocytes (%) (Auto) 2.4% (4-12) Eosinophils (%) (Auto) 0% (0-5) Basophils (%) (Auto) 0.2% (0-3) Prothrombin Time 11.9sec (8.1-12.5) Prothromb Time International Ratio 1.11ratio Sodium Level 138mEq/L (134-144) Potassium Level 4.3mEq/L (3.5-5.2) Chloride Level 98mEq/L (97-108) Carbon Dioxide Level 20mmol/L (18-29) Blood Urea Nitrogen 9mg/dL (6-24) Creatinine 0.48mg/dL (0.76-1.27) Estimat Glomerular Filtration Rate 204mL/min (>59) Glucose Level 163mg/dL (60-99) Calcium Level 9.7mg/dL (8.5-10.1) Magnesium Level 1.5mg/dL (1.6-2.6) Total Bilirubin 0.5mg/dL (0.0-1.2) Aspartate Amino Transf (AST/SGOT) 51U/L (0-50) Alanine Aminotransferase (ALT/SGPT) 37U/L (0-44) Alkaline Phosphatase 108U/L (25-150) Troponin T 0.010ug/L (0.0-0.011) Pro-B-Type Natriuretic Peptide 1590pg/mL (0-86) Total Protein 8.5g/dL (6.4-8.4) Albumin 4.5g/dL (3.4-5.0) Lipase 15U/L (13-60) Alcohol, Quantitative < 10mg/dL (0-10) Hold Ac Top Tube Received (Received) Hold Urine Received (Received) ECG Interpretation ECG Interpretation: sinus or ectopic atrial tachycardia rate 109 LBBB Time: 06:39 Interpreted by: ED physician X-Ray Chest Interpretation Chest Xray Interpretation: cardiomegaly View: Portable, 1 view Re-Eval/Medical Decision Med Decision/Clinical Course Patient arrived hypertensive and tachycardiac with persistent vomiting, given the recent history of congestive heart failure more thorough diagnostic evaluation is performed. He is given IV metoprolol 2 as well as IV magnesium IV Lasix, IV Ativan IV Dilaudid. He also received Haldol, Benadryl, and Zofran. Ultimately after the IV Dilaudid he had dramatic improvement in both his heart rate and blood pressure. He does confide that these symptoms seem to resolve with narcotics and benzodiazepines. There is no obvious coronary ischemia based on EKG or troponin. His proBNP was mildly elevated and he does not clinically look to be in decompensated congestive heart failure. Patient is now clinically stable after interventions in the ER tolerating oral intake, he has a follow-up appointment with his primary care doctor today. He will be given oral Ativan and Dilaudid as a single dose as well as oral metoprolol prior to discharge. Precautions given. Incidentally, at the time of discharge to session patient seemed merely focus on obtaining opiate pain medication and benzodiazepines for home use as he felt this would alleviate his need to return to the ER for these episodes. I did recommend that he discuss this with his primary care doctor. Also gave him contact information for [facility] and [facility]. Time of Eval: 08:50 Patient Status: Condition improved Re-Evaluation/Progress Note: Rechecked patient. He is doing well and tolerating PO ice chips. He is requesting juice. His heart rate and blood pressure have normalized. Time of Eval: 09:30 Patient Status: Condition improved Re-Evaluation/Progress Note: Discussed plan for discharge. Patient understands and agrees with plan. All questions addressed at this time. Counseled Regarding: Diagnosis, Lab results, Need for follow-up, When/why to return to ED Discharge & Departure Primary Impression: Cyclical vomiting Disposition: Home Discharge Condition All VS Reviewed: Yes Condition: Improved Additional Instructions: Thank you for entrusting us with your care. Make sure to take your regular medications as prescribed. I suggest a magnesium supplement, one pill a day, because your magnesium levels have been low. Take Zofran as needed for nausea. If you need help with pain management, you can follow up with [facility] or [facility]. Follow up with your primary doctor this afternoon. Referrals: Neil Melendez PA-C (PCP) [facility] Scribe Attestation Portions of this note were transcribed by Rossy Carrillo. I, Dr. O'Kasandra personally performed the history, physical exam and medical decision-making; I reviewed and confirmed the accuracy of the information in the transcribed note. Signed by: Rossy Carrillo 12/01/16, [id number] copies to: Neil Melendez PA-C, Timothy S DO Dec 01, 2016 06:39 ROSSY CARRILLO Dec 01, 2016 06:41
[2016-12-01 07:03] VITALS: BP 151/101; PULSE 105; RESP 20; O2SAT 98
[2016-12-01] MEDS ORDERED: 0.9% Sodium Chloride 500 ML IV ONE (07:15)
[2016-12-01] MEDS ORDERED: Magnesium Sulf 2 Gm/50mL Water 2 GM in IV Premix 1 EACH IV ONE (07:25)
[2016-12-01] MEDS: HYDROmorphone 1 mg/mL Inj IVPUSH PRN ×2 (07:42→08:47)
[2016-12-01 08:12] VITALS: BP 122/65; PULSE 96; RESP 15; O2SAT 98
[2016-12-01] MEDS ORDERED: SLO64 PO (09:42)
[2016-12-01] MEDS ORDERED: LORazepam 1 mg Tablet PO ONE (09:45)
[2016-12-01] MEDS ORDERED: MeTOProlol XL 25 mg ER24 Tablet PO ONE (09:45)
[2016-12-01 10:18] VITALS: BP 107/52; PULSE 94; RESP 16; O2SAT 96
--- NOTE | 2016-12-01 10:19 | DRSVH ---
PROCEDURE: X-RAY CHEST ONE VIEW, PORTABLE ([id number]) INDICATIONS: CHEST PAIN, VOMITING TECHNIQUE: One view of the chest was acquired. COMPARISON: None. FINDINGS: Surgical changes and devices: None. Lungs and pleura: No pleural effusions or pneumothorax. Lungs are clear. Mediastinum: Mediastinal contours appear normal. Heart size is normal. Bones and chest wall: No suspicious bony lesions. Overlying soft tissues appear unremarkable. IMPRESSION: No acute cardiopulmonary disease. Dictated by: Chandan Hassan [facility] Interpreted: Bee Qureshi MD on 12/01/2016 at 10:18 Transcribed by: LILIBETH on 12/01/2016 at 10:18 Approved by: Bee Qureshi MD, PhD on 12/01/2016 at 16:34
== END 2016-12-01 10:20 | disposition home or self-care (01) ==
LOC: SED 04:27
DX: G43.A0 Cyclical vomiting, in migraine, not intractable (principal); R10.13 Epigastric pain; I11.0 Hypertensive heart disease with heart failure; I50.9 Heart failure, unspecified; F17.200 Nicotine dependence, unspecified, uncomplicated; Z79.01 Long term (current) use of anticoagulants; Z88.5 Allergy status to narcotic agent; Z88.8 Allergy status to other drugs, medicaments and biological substances
CPT/HCPCS: 36415; 71010; 80053; 81002; 83690; 83735; 83880; 84484; 85025; 85610; 93005; 96361; 96374; 96375; 96376; 99285; G0480; J1170; J1200; J1630; J1940; J2060; J2405; J7040

== ENCOUNTER 2017-01-28 05:53 | Emergency (ER) | payer OTHER ==
[~2017-01-28] VITALS: Ht 175.3 cm; Wt 63.6 kg
[~2017-01-28 05:53] MED LIST changes: +SLO64 PO
[2017-01-28 05:56] VITALS: BP 159/117; PULSE 114; RESP 21; O2SAT 99
[2017-01-28] MEDS ORDERED: Ondansetron 2 mg/mL 2 mL Inj IVPUSH ONE (06:25)
[2017-01-28] MEDS ORDERED: MetoCLOpramide 5 mg/mL 2 mL Inj IVPUSH ONE (06:25)
[2017-01-28] MEDS ORDERED: Dexamethasone 10 mg/mL Inj IVPUSH ONE (06:25)
[2017-01-28] MEDS ORDERED: Haloperidol 5 mg/mL Inj IVPUSH ONE ×2 (06:25→08:45)
[2017-01-28] MEDS ORDERED: 0.9% Sodium Chloride 1,000 ML IV ONE (06:25)
[2017-01-28] MEDS ORDERED: Acetaminophen IV 1,000 MG in IV Premix 1 EACH IV ONE (06:25)
--- NOTE | 2017-01-28 06:43 | ED.REPORT ---
HPI-Abd Pain M 40 and Over Date of Service Jan 28, 2017 ED Provider: Rashad Hernandez MD 41 year old male with a history of cyclic vomiting, anxiety, CHF and HTN who presents to the ER due to abd pain and cyclic nausea and vomiting which has been severe for the last 2 days. Pt also reports diarrhea. Pt has had cyclic vomiting about once per month for the last 11 years with no known cause. Possibly from abnormal mitochondrial DNA. Today his symptoms are consistent with previous episodes, but more severe. Previously pt has been treated with Dilaudid, Ativan and Zofran with relief. He is on 4- 7.5mg Percocet per day which typically helps with his symptoms, but not today. Pt denies THC use. Former EtOH use. Nursing Notes Stated Complaint: ABDOMINAL PAIN, VOMITING Chief Complaint: Male Abdominal Pain Nursing Notes Reviewed: Yes Allergies: Coded Allergies: promethazine (Verified Allergy, Unknown, hallucinations, 01/28/17) hydrocodone (Verified Adverse Reaction, Mild, itching, 01/28/17) Scheduled Furosemide (Lasix) 20 Mg Tablet 20 MG PO DAILY Magnesium Chloride (Slow-Mag) 64 Mg Tablet 64 MG PO DAILY Metoprolol Succinate ER (Metoprolol Succinate ER) 25 Mg Tab.er.24h 25 MG PO DAILY Warfarin Sodium (Warfarin Sodium) 2.5 Mg Tablet 5 MG PO DAILY Initial dose is 5 mg daily until 11/30/16, after this you should have dose adjusted. Take each evening. Scheduled PRN Dicyclomine (Bentyl) 10 Mg Capsule 10 MG PO DIRECTED PRN PRN For Nausea Lisinopril (Lisinopril) 10 Mg Tablet 10 MG PO BID PRN PRN HYPERtension Ondansetron (Ondansetron) 8 Mg Tablet 8 MG PO DIRECTED PRN PRN For Nausea oxyCODONE-Acetaminophen 7.5-325 mg (oxyCODONE-Acetaminophen 7.5-325 mg) 1 Each Tablet 1 TAB PO Q6H PRN PRN For Pain General Time Seen by MD: 06:42 Chief Complaint Abdominal pain, Nausea Hx Obtained From: Patient, Spouse Arrived By: Walk-in Sudden in Onset?: No Onset Occurred: Yesterday Symptom Duration: Since onset Location: : Diffuse Quality: Painful Severity: Current: Mild Associated with: Reports: Nausea, Vomiting, Denies: Fever Similar Sx Previous: Yes Past Medical History 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 Adnoids Reports: Cholecystectomy Smoking History Current Every Day Smoker Social History Alcohol Use: Denies alcohol use (States he quit drinking for pain management ) Drug Use: Denies drug use Other Social History: Smokeless tobacco, Good social support Ambulatory Status Independent Review of Systems Basic Review of Systems Eyes: Vision NL, No discharge ENT: Hearing NL, No pain, No nasal congestion, No pharyngeal pain Neurologic: NL mental status, No weakness, No numbness Psychiatric: Normal thought content Constitutional: Denies: Fever Respiratory: Denies: Shortness of breath GI: Reports: Abdominal pain, Diarrhea, Nausea, Vomiting Complete sys rev & neg: except as marked. Physical Exam Initial Vital Signs Vital Signs (First) Date Time Temp Pulse Resp B/P Pulse Ox O2 Delivery O2 Flow Rate FiO2 01/28/17 05:56 37.0 114 21 159/117 99 Room Air Initial VS: Reviewed, Vital signs abnormal Head / Eyes: Atraumatic, Normocephalic, PERRL ENT: Mucous membranes moist, Conjunctiva normal, No scleral icterus Neck: Full range of motion Extremities: Vascular intact, Neuro intact Skin: Warm, Dry, No cyanosis Neurologic: Alert, Oriented, Nonfocal Psychiatric: Mood/affect normal, Behavior normal, Normal thought content General/Constitutional: Awake, Alert Respiratory / Chest: Breath sounds NL, Breath sounds = bilat, No respiratory distress, No rales, No rhonchi, No wheezing Cardiovascular: Heart rate NL, Regular rhythm, Heart sounds NL, No murmurs, Peripheral circulation NL Abdomen: Soft, No guarding, No rebound Tenderness/Guarding/Rebound: Positive: Tender diffuse (mild) Back: Atraumatic, Inspection NL, Full range of motion Interpretation & Diagnostics Lab Results Interpretation Result Diagram: 01/28/17 0614 01/28/17 0614 Test 01/28/17 06:14 White Blood Count 7.6th/mm3 (3.8-10.1) Red Blood Count 4.39mil/mm3 (4.40-5.80) Hemoglobin 14.4g/dL (13.8-17.2) Hematocrit 41.5% (41.0-50.0) Mean Corpuscular Volume 94.5fL (81-100) Mean Corpuscular Hemoglobin 32.8pg (27.0-35.0) Mean Corpuscular Hemoglobin Concent 34.7% (32.0-37.0) Red Cell Distribution Width 13.6% (12.3-15.4) Platelet Count 281bil/L (150-400) Neutrophils (%) (Auto) 79.9% (40-74) Lymphocytes (%) (Auto) 14.7% (14-46) Monocytes (%) (Auto) 5.0% (4-12) Eosinophils (%) (Auto) 0% (0-5) Basophils (%) (Auto) 0.1% (0-3) Hold Purple Top Tube Received (Received) Hold Blue Top Tube Received (Received) Sodium Level 138mEq/L (134-144) Potassium Level 4.2mEq/L (3.5-5.2) Chloride Level 99mEq/L (97-108) Carbon Dioxide Level 19mmol/L (18-29) Blood Urea Nitrogen 12mg/dL (6-24) Creatinine 0.54mg/dL (0.76-1.27) Estimat Glomerular Filtration Rate 178mL/min (>59) Glucose Level 154mg/dL (60-99) Calcium Level 10.0mg/dL (8.5-10.1) Total Bilirubin 0.9mg/dL (0.0-1.2) Aspartate Amino Transf (AST/SGOT) 92U/L (0-50) Alanine Aminotransferase (ALT/SGPT) 52U/L (0-44) Alkaline Phosphatase 88U/L (25-150) Total Protein 9.0g/dL (6.4-8.4) Albumin 5.3g/dL (3.4-5.0) Hold Red Top Tube Received (Received) Hold [place] Top Tube Received (Received) Hold Ac Top Tube Received (Received) Re-Eval/Medical Decision Time of Eval: 08:30 Re-Evaluation/Progress Note: Nausea, vomiting and pain have improved. Counseled Regarding: Diagnosis, Lab results, Need for follow-up, When/why to return to ED Discharge & Departure Primary Impression: Cyclic vomiting syndrome Vomiting Intractability: intractable Nausea presence: with nausea Qualified Code: G43.A1 - Cyclical vomiting, intractable Disposition: Home Vital Signs - All Vital Signs Date Time Temp Pulse Resp B/P Pulse Ox O2 Delivery O2 Flow Rate FiO2 01/28/17 07:57 36.5 93 16 114/58 97 Room Air 01/28/17 05:56 37.0 114 21 159/117 99 Room Air )( All Prior VS Reviewed: Yes Condition: Stable Patient Instructions: Acute Abdominal Pain (ED) Additional Instructions: No new or dangerous cause for your abdominal pain is discovered today. I believe, as you suspect, that this is a typical exacerbation of your cyclic abdominal pain syndrome. As an emergency department policy we do not typically administer narcotics for this syndrome in our facility. I have made an exception today because you are new to our area. It is possible for your primary care doctor to arrange for outpatient treatment periodically for this condition. She may be able to do that at our hospital but more likely she would be able to do it at her local hospital in [place]. If she has trouble arranging this, I am happy to help her navigate the system. You could have her call me directly: [phone], if she would like my assistance in arranging this. We will always see you and evaluate you carefully and treat you in a manner that seems consistent with appropriate evidence-based care, but typically this will not include parenteral (IV) narcotics so you should not have that expectation. If you are not back to normal in the next day or 2, I recommend follow-up at the clinic. Referrals: NOPCP (PCP) Scribe Attestation Portions of this note were transcribed by Yarely Lakhani. I, (Dr. Hernandez) personally performed the history, physical exam and medical decision-making; I reviewed and confirmed the accuracy of the information in the transcribed note. Signed by: Yarely Lakhani. [place], 01/28/2017, 0853 Rashad Hernandez MD Jan 28, 2017 06:43 Yarely Lakhani Jan 28, 2017 06:48
[2017-01-28] MEDS ORDERED: HYDROmorphone 1 mg/mL Inj IVPUSH ONE (06:50)
[2017-01-28 07:01] LABS: BASOPHILS % (AUTO) 0.1 % (0-3); EOSINOPHILS % (AUTO) 0 % (0-5); Mean Corpuscular Hemoglobin 32.8 pg (27.0-35.0); Mean Corpuscular Volume 94.5 fL (81-100); NEUTROPHILS % (AUTO) 79.9 % (40-74); Platelet Count 281 bil/L (150-400)
[2017-01-28 07:57] VITALS: BP 114/58; PULSE 93; RESP 16; O2SAT 97
[2017-01-28] MEDS ORDERED: oxyCODONE-Acetamin 5-325 mg Tablet PO ONE (08:45)
[2017-01-28] MEDS ORDERED: oxyCODONE-Acetamin 10-325 mg Tablet PO ONE (08:45)
[2017-01-28 09:04] VITALS: BP 125/75; PULSE 87; RESP 16; O2SAT 97
[2017-01-28 09:11] VITALS: BP 125/75; PULSE 87; RESP 16; O2SAT 97
== END 2017-01-28 09:11 | disposition home or self-care (01) ==
LOC: SED 05:53
DX: G43.A1 Cyclical vomiting, in migraine, intractable (principal); R19.7 Diarrhea, unspecified; I11.0 Hypertensive heart disease with heart failure; I50.9 Heart failure, unspecified; F17.200 Nicotine dependence, unspecified, uncomplicated; Z79.01 Long term (current) use of anticoagulants; Z88.5 Allergy status to narcotic agent; Z88.8 Allergy status to other drugs, medicaments and biological substances
CPT/HCPCS: 36415; 80053; 85025; 96361; 96374; 96375; 96376; 99284; J0131; J1100; J1170; J1200; J1630; J1885; J2060; J2405; J2765; J7030

== ENCOUNTER 2017-03-27 16:21 | Emergency (ER) | payer OTHER ==
[~2017-03-27] VITALS: Ht 175.3 cm; Wt 63.6 kg
[2017-03-27 17:01] VITALS: BP 160/100; PULSE 100; RESP 20; O2SAT 98
[2017-03-27 17:57] LABS: BASOPHILS % (AUTO) 0.3 % (0-3); EOSINOPHILS % (AUTO) 0.6 % (0-5); MONOCYTES % (AUTO) 6.2 % (4-12); Mean Corpuscular Hemoglobin 33.2 pg (27.0-35.0); Mean Corpuscular Volume 94.5 fL (81-100); NEUTROPHILS % (AUTO) 75.3 % (40-74); Platelet Count 309 bil/L (150-400)
[2017-03-27 18:18] LABS: Magnesium 1.9 mg/dL (1.6-2.6)
--- NOTE | 2017-03-27 19:01 | ED.REPORT ---
HPI-General Illness Date of Service March 27, 2017 ED Provider: Virgilio Florentino MD Pt is a 41 y/o male w/ a hx of chronic cyclical vomiting of uncertain etiology presenting to the ED c/o nausea and vomiting onset today. He has been worked up many times in the past and have never found a cause for his cyclical vomiting. Pt c/o associated shaking, abdominal pain. He denies fever, chills, hematemesis. Nursing Notes Stated Complaint: ABDOMINAL PAIN/VOMITING Chief Complaint: Male Abdominal Pain Nursing Notes Reviewed: Yes Allergies: Coded Allergies: promethazine (Verified Allergy, Unknown, hallucinations, 03/27/17) hydrocodone (Verified Adverse Reaction, Mild, itching, 03/27/17) Scheduled Furosemide (Lasix) 20 Mg Tablet 20 MG PO DAILY Magnesium Chloride (Slow-Mag) 64 Mg Tablet 64 MG PO DAILY Metoprolol Succinate ER (Metoprolol Succinate ER) 25 Mg Tab.er.24h 25 MG PO DAILY Warfarin Sodium (Warfarin Sodium) 2.5 Mg Tablet 5 MG PO DAILY Initial dose is 5 mg daily until 11/30/16, after this you should have dose adjusted. Take each evening. Scheduled PRN Dicyclomine (Bentyl) 10 Mg Capsule 10 MG PO DIRECTED PRN PRN For Nausea Lisinopril (Lisinopril) 10 Mg Tablet 10 MG PO BID PRN PRN HYPERtension Ondansetron (Ondansetron) 8 Mg Tablet 8 MG PO DIRECTED PRN PRN For Nausea oxyCODONE-Acetaminophen 7.5-325 mg (oxyCODONE-Acetaminophen 7.5-325 mg) 1 Each Tablet 1 TAB PO Q6H PRN PRN For Pain General Time Seen by MD: 18:47 Chief Complaint Vomiting Hx Obtained From: Patient Arrived By: Walk-in Sudden in Onset?: Yes Onset Occurred: 1 - 4 hours ago Symptom Duration: Since onset Location: : Abdomen Quality: Painful Severity: Current: Moderate Severity: Maximum: Moderate Recent Healthcare: Recent doctor visit, Recent testing, Prior workup Similar Sx Previous: Yes Past Medical History 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 Adnoids Reports: Cholecystectomy Smoking History Current Every Day Smoker Social History Alcohol Use: Denies alcohol use Drug Use: Denies drug use Other Social History: Smokeless tobacco, Good social support Ambulatory Status Independent Review of Systems Full Review of Systems Constitutional: Denies: Chills, Fever Respiratory: Denies: Non-productive cough, Shortness of breath GI: Reports: Abdominal pain, Nausea, Vomiting, Denies: Hematemesis Neurologic: Reports: Shaking Complete sys rev & neg: except as marked. Physical Exam Vital Signs Vital Signs Date Time Temp Pulse Resp B/P Pulse Ox O2 Delivery O2 Flow Rate FiO2 03/27/17 21:59 36.4 87 20 146/95 98 Room Air 03/27/17 19:36 36.2 100 20 117/81 97 Room Air 03/27/17 17:01 36.6 100 20 160/100 98 Room Air Initial VS: Reviewed, Vital signs abnormal Head / Eyes: Atraumatic, Normocephalic, PERRL ENT: Mucous membranes moist, Conjunctiva normal, No scleral icterus Neck: Supple, Full range of motion Respiratory: Breath sounds normal, Clear to auscultation, No respiratory distress Cardiovascular: Regular rate & rhythm, Heart sounds normal, Intact distal pulses Extremities: Vascular intact, Neuro intact, No swelling, No tenderness Skin: Warm, Dry, No cyanosis Neurologic: Alert, Oriented, Nonfocal Psychiatric: Mood/affect normal, Behavior normal, Normal thought content General/Constitutional: Awake, Alert, No acute distress, Cooperative, Not toxic appearing Gagging but not actively vomiting Abdomen: Atraumatic, Soft, Non-tender, No guarding, No rebound, No distention, No palpable mass Interpretation & Diagnostics Lab Results Interpretation Result Diagram: 03/27/17 1745 03/27/17 1745 Test 03/27/17 17:45 White Blood Count 9.6th/mm3 (3.8-10.1) Red Blood Count 3.97mil/mm3 (4.40-5.80) Hemoglobin 13.2g/dL (13.8-17.2) Hematocrit 37.5% (41.0-50.0) Mean Corpuscular Volume 94.5fL (81-100) Mean Corpuscular Hemoglobin 33.2pg (27.0-35.0) Mean Corpuscular Hemoglobin Concent 35.2% (32.0-37.0) Red Cell Distribution Width 13.1% (12.3-15.4) Platelet Count 309bil/L (150-400) Neutrophils (%) (Auto) 75.3% (40-74) Lymphocytes (%) (Auto) 17.2% (14-46) Monocytes (%) (Auto) 6.2% (4-12) Eosinophils (%) (Auto) 0.6% (0-5) Basophils (%) (Auto) 0.3% (0-3) Sodium Level 139mEq/L (134-144) Potassium Level 3.6mEq/L (3.5-5.2) Chloride Level 100mEq/L (97-108) Carbon Dioxide Level 20mmol/L (18-29) Blood Urea Nitrogen 10mg/dL (6-24) Creatinine 0.49mg/dL (0.76-1.27) Estimat Glomerular Filtration Rate 199mL/min (>59) Glucose Level 119mg/dL (60-99) Calcium Level 9.3mg/dL (8.5-10.1) Magnesium Level 1.9mg/dL (1.6-2.6) Total Bilirubin 0.4mg/dL (0.0-1.2) Aspartate Amino Transf (AST/SGOT) 56U/L (0-50) Alanine Aminotransferase (ALT/SGPT) 47U/L (0-44) Alkaline Phosphatase 80U/L (25-150) Total Protein 7.8g/dL (6.4-8.4) Albumin 4.3g/dL (3.4-5.0) Lipase 20U/L (13-60) Hold Ac Top Tube Received (Received) Re-Eval/Medical Decision Med Decision/Clinical Course Pt is a 41 y/o male w/ a hx of chronic cyclical vomiting of uncertain etiology presenting to the ED c/o nausea and vomiting onset today. He has been worked up many times in the past and have never found a cause for his cyclical vomiting. Pt c/o associated shaking, vague abdominal pain. He denies fever, chills, hematemesis. Here in the emergency department the patient appears relatively well hydrated and he is afebrile with stable vital signs. Meds given: 2 L saline, 2 mg Haldol, 1 mg Ativan, 25 mg IV Benadryl Labs notable as below: CBC: Unremarkable CMP: Unremarkable with very mildly elevated transaminases, lipase normal After treatment as above the patient reported drastic improvement in his symptoms. He was able to tolerate PO and serial abdominal examinations remained benign. I do not feel that abdominal imaging studies are indicated. Patient is established with a primary care physician who is currently looking therapeutic options and further working up his cyclical vomiting. His presentation today was similar to prior presentations and it is now under control. Patient is accompanied by his mother and they feel comfortable taking him home. Prior to discharge follow-up and return precautions were reviewed in detail with the patient who verbalized understanding and agreement with the plan. The patient was discharged in stable condition. Time of Eval: 22:20 Patient Status: Condition improved, Moderate relief Re-Evaluation/Progress Note: Pt rechecked. Informed pt of plan for treatment. Pt understands and agrees with plan for treatment. F/U instructions and RTER warnings given. All questions addressed. Counseled Regarding: Diagnosis, Lab results, Need for follow-up, When/why to return to ED Discharge & Departure Primary Impression: Cyclical vomiting Vomiting Intractability: unspecified Nausea presence: with nausea Qualified Code: G43.A0 - Cyclical vomiting, not intractable Additional Impression: Abdominal pain Abdominal location: generalized Qualified Code: R10.84 - Generalized abdominal pain Disposition: Home Discharge Condition All VS Reviewed: Yes Condition: Stable Patient Instructions: Acute Nausea and Vomiting (GEN) Additional Instructions: Thank you for seeking care at the emergency room. It is difficult for us to make definitive diagnoses in the ED but we believe that you are experiencing cyclical vomiting of uncertain cause. Keep your appointments with your specialist to further evaluate your symptoms. Our primary goal today in the ED was to evaluate you for any life-threatening conditions. Your evaluation was reassuring. Your labs were normal. Take your regular medications as prescribed. You should follow-up with your primary doctor in the next week. You should return to the ED immediately if you develop fevers, uncontrolled vomiting, profound weakness, bloody vomit, or any other concerning signs or symptoms. Thank you for letting us partake in your care today. Referrals: NOPCP (PCP) [facility] Scribe Attestation Portions of this note were transcribed by Jan Constantino. I, Dr. Florentino personally performed the history, physical exam and medical decision-making; I reviewed and confirmed the accuracy of the information in the transcribed note. Signed by Rohini Schofield, 03/27/17 - 1929 Virgilio Florentino MD March 27, 2017 19:01 JAN CONSTANTINO March 27, 2017 19:08
[2017-03-27] MEDS ORDERED: Haloperidol 5 mg/mL Inj IM PRN (19:10)
[2017-03-27] MEDS ORDERED: 0.9% Sodium Chloride 1,000 ML IV SCH (19:10)
[2017-03-27 19:36] VITALS: BP 117/81; PULSE 100; RESP 20; O2SAT 97
[2017-03-27 21:59] VITALS: BP 146/95; PULSE 87; RESP 20; O2SAT 98
[2017-03-28] MEDS ORDERED: HYDR50CA PO (05:09)
[2017-03-28] MEDS ORDERED: LOPE-147 PO (05:09)
== END 2017-03-27 22:47 | disposition home or self-care (01) ==
LOC: SED 16:21
DX: G43.A0 Cyclical vomiting, in migraine, not intractable (principal); R10.84 Generalized abdominal pain; I11.0 Hypertensive heart disease with heart failure; I50.9 Heart failure, unspecified; Z79.01 Long term (current) use of anticoagulants; F17.200 Nicotine dependence, unspecified, uncomplicated; Z88.5 Allergy status to narcotic agent; Z88.8 Allergy status to other drugs, medicaments and biological substances
CPT/HCPCS: 36415; 80053; 83690; 83735; 85025; 96361; 96372; 96374; 96375; 96376; 99285; J1200; J1630; J2060; J7030

== ENCOUNTER 2017-03-28 04:02 | Emergency (ER) | payer OTHER ==
[~2017-03-28] VITALS: Ht 175.3 cm; Wt 63.6 kg
[2017-03-28 04:04] VITALS: BP 159/101; PULSE 98; RESP 22; O2SAT 98
--- NOTE | 2017-03-28 04:24 | ED.REPORT ---
HPI-Abd Pain M 40 and Over Date of Service March 28, 2017 ED Provider: Mitchel Kimble MD A 41 year old male with a medical history including cyclic vomiting, CHF, and hypertension presents to the ED accompanied by his mother with intermittent abdominal pain onset five days ago. Associated symptoms include nausea, vomiting , and diarrhea. The patient denies other symptoms. He has an appointment with his PCP later today. The patient was in the ED yesterday with similar symptoms and was given Haldol, Ativan, and Benadryl which relieved his symptoms for "a few hours." He has had similar symptoms in the past. Nursing Notes Stated Complaint: ABDOMINAL PAIN,VOMITING Chief Complaint: Male Abdominal Pain Nursing Notes Reviewed: Yes Allergies: Coded Allergies: promethazine (Verified Allergy, Unknown, hallucinations, 03/27/17) hydrocodone (Verified Adverse Reaction, Mild, itching, 03/27/17) Scheduled Furosemide (Lasix) 20 Mg Tablet 20 MG PO DAILY Loperamide HCl (Imodium A-D) 2 Mg Capsule 2 MG PO PRN Metoprolol Succinate ER (Metoprolol Succinate ER) 25 Mg Tab.er.24h 25 MG PO DAILY Warfarin Sodium (Warfarin Sodium) 2.5 Mg Tablet 5 MG PO DAILY Initial dose is 5 mg daily until 11/30/16, after this you should have dose adjusted. Take each evening. Scheduled PRN Dicyclomine (Bentyl) 10 Mg Capsule 10 MG PO DIRECTED PRN PRN For Nausea Hydroxyzine Pamoate (Vistaril) 50 Mg Capsule 50 MG PO BID PRN PRN For Itching Lisinopril (Lisinopril) 10 Mg Tablet 10 MG PO BID PRN PRN HYPERtension Ondansetron (Ondansetron) 8 Mg Tablet 8 MG PO DIRECTED PRN PRN For Nausea oxyCODONE-Acetaminophen 7.5-325 mg (oxyCODONE-Acetaminophen 7.5-325 mg) 1 Each Tablet 1 TAB PO Q6H PRN PRN For Pain General Time Seen by MD: 04:22 Chief Complaint Abdominal pain Hx Obtained From: Patient Arrived By: Walk-in Sudden in Onset?: No Onset Occurred: 5 days ago Symptom Duration: Intermittent Location: : Diffuse Quality: Painful Severity: Current: Moderate Severity: Maximum: Moderate Relieved by: Prescription meds Recent Healthcare: Recent doctor visit Similar Sx Previous: Yes Past Medical History Past Medical History Notes: [employer] Ysabel Taylor Past Medical History Anxiety Heart defect- nonspecific cyclic vomiting - uncertain etiology Reports: Congestive heart failure, Hypertension Past Surgical History Testicular hernia repair Hand and finger surg. Adnoids Reports: Cholecystectomy Smoking History Current Every Day Smoker Social History Alcohol Use: Denies alcohol use Drug Use: Denies drug use Other Social History: Smokeless tobacco, Good social support Ambulatory Status Independent Review of Systems Constitutional: Denies: Fever Respiratory: Denies: Non-productive cough, Shortness of breath GI: Reports: Abdominal pain, Diarrhea, Nausea, Vomiting Complete sys rev & neg: except as marked. Physical Exam Physical Exam Notes: Initial Vital Signs Vital Signs (First) Date Time Temp Pulse Resp B/P Pulse Ox O2 Delivery O2 Flow Rate FiO2 03/28/17 04:04 36.4 98 22 159/101 98 Room Air Initial VS: Reviewed, Vital signs abnormal Head / Eyes: Atraumatic, Normocephalic ENT: Conjunctiva normal, No scleral icterus Neck: Supple, Full range of motion Skin: Warm, Dry, No cyanosis Neurologic: Alert, Oriented, Nonfocal Psychiatric: Mood/affect normal, Behavior normal, Normal thought content General/Constitutional: Awake, Alert Distress / Hydration: Positive: Distress moderate Respiratory / Chest: Breath sounds NL, Breath sounds = bilat, No respiratory distress Cardiovascular: Regular rhythm, Heart sounds NL Heart Rate / Rhythm: Positive: Tachycardia Abdomen: Soft Tenderness/Guarding/Rebound: Positive: Tender diffuse Interpretation & Diagnostics Lab Results Interpretation Test 03/28/17 05:15 Hold Purple Top Tube Received (Received) Hold Blue Top Tube Received (Received) Hold [place] Top Tube Received (Received) Hold Ac Top Tube Received (Received) Lab Results Interpretation: Labs were all done earlier in the day on a previous visit so were not repeated at this time. Re-Eval/Medical Decision Med Decision/Clinical Course 41-year-old male who has a history of cyclical vomiting for 11 years not involved with marijuana. He is however on fairly high-dose chronic opiate medication. He was seen here late yesterday and treated with IV hydration, Benadryl, Zofran, and Haldol with good temporary relief, but now the pain is recurred. He states that he has been unable to keep down his pain medication. An IV was started and he was given IV hydration. IM suspicious that a significant amount if his symptoms currently are opiate withdrawal because of vomiting his medications. He was given 2 mg of IV Dilaudid, 1 mg of IV Ativan, ondansetron and saline IV. His care is being turned over change of shift to Dr. Cespedes. Time of Eval: 06:14 Re-Evaluation/Progress Note: Patient's care will be transferred to Dr. Cespedes at change of shift. Discharge & Departure Shift Change Sign-Out Patient Care Transferred: Yes (Dr. Cespedes) Discussed Complaint(s): Yes Response to Therapy: Improved Primary Impression: Cyclical vomiting Vomiting Intractability: unspecified Nausea presence: with nausea Qualified Code: G43.A0 - Cyclical vomiting, not intractable Vital Signs - All Vital Signs Date Time Temp Pulse Resp B/P Pulse Ox O2 Delivery O2 Flow Rate FiO2 03/28/17 06:32 95 18 131/82 96 Room Air 03/28/17 04:04 36.4 98 22 159/101 98 Room Air Referrals: NOPCP (PCP) Care Transferred to: Dr. Cespedes Care Transferred at: 06:15 Scribe Attestation Portions of this note were transcribed by Gosia Garza. I, Dr. Kimble, personally performed the history, physical exam, and medical decision-making; I reviewed and confirmed the accuracy of the information in the transcribed note. Signed by: Rohini Silverio, 03/28/2017, 06:35 Mitchel Kimble MD March 28, 2017 04:24 GOSIA GARZA March 28, 2017 04:41
[2017-03-28] MEDS ORDERED: 0.9% Sodium Chloride 1,000 ML IV ONE ×2 (04:38→07:04)
[2017-03-28] MEDS ORDERED: Ondansetron 2 mg/mL 2 mL Inj IV PRN (04:40)
[2017-03-28] MEDS ORDERED: MetoCLOpramide 5 mg/mL 2 mL Inj IVPUSH ONE (04:40)
[2017-03-28] MEDS: HYDROmorphone 1 mg/mL Inj IVPUSH PRN ×4 (05:05→09:06)
[2017-03-28] MEDS ORDERED: HYDR50CA PO (05:09)
[2017-03-28] MEDS ORDERED: LOPE-147 PO (05:09)
[2017-03-28 06:32] VITALS: BP 131/82; PULSE 95; RESP 18; O2SAT 96
[2017-03-28] MEDS ORDERED: Ondansetron 2 mg/mL 2 mL Inj IVPUSH ONE (07:05)
[2017-03-28 07:22] LABS: BASOPHILS % (AUTO) 0.1 % (0-3); EOSINOPHILS % (AUTO) 0.4 % (0-5); MONOCYTES % (AUTO) 8.9 % (4-12); Mean Corpuscular Hemoglobin 33.3 pg (27.0-35.0); Mean Corpuscular Volume 95.8 fL (81-100); NEUTROPHILS % (AUTO) 64.8 % (40-74); Platelet Count 288 bil/L (150-400)
[2017-03-28 07:28] LABS: INR 1.08 ratio
[2017-03-28 07:36] LABS: TROPONIN T 0.01 ug/L (0.0-0.011)
[2017-03-28 07:48] LABS: Magnesium 1.9 mg/dL (1.6-2.6)
[2017-03-28 07:57] VITALS: BP 148/95; PULSE 84; RESP 16; O2SAT 97
[2017-03-28] MEDS ORDERED: HYDROmorphone 1 mg/mL Inj IVPUSH PRN (08:05)
--- NOTE | 2017-03-28 08:38 | DRSVH ---
PROCEDURE: X-RAY CHEST ONE VIEW, PORTABLE ([id number]) INDICATIONS: chest pain TECHNIQUE: One view of the chest was acquired. COMPARISON: None. FINDINGS: Surgical changes and devices: Cholecystectomy clips. Lungs and pleura: No pleural effusions or pneumothorax. Lungs are clear. Mediastinum: Mediastinal contours appear normal. Heart size is normal. Bones and chest wall: No suspicious bony lesions. Overlying soft tissues appear unremarkable. IMPRESSION: No acute cardiopulmonary disease. Dictated by: Chandan Hassan [facility] Interpreted: Bee Qureshi MD on 03/28/2017 at 8:38 Transcribed by: LILIBETH on 03/28/2017 at 8:38 Approved by: Bee Qureshi MD, PhD on 03/28/2017 at 9:20
[2017-03-28 09:58] VITALS: BP 148/97; PULSE 91; RESP 16; O2SAT 97
[2017-03-28 10:10] VITALS: BP 148/97; PULSE 91; RESP 16; O2SAT 97
== END 2017-03-28 10:12 | disposition home or self-care (01) ==
LOC: SED 04:02
DX: G43.A0 Cyclical vomiting, in migraine, not intractable (principal); I11.0 Hypertensive heart disease with heart failure; I50.9 Heart failure, unspecified; F17.200 Nicotine dependence, unspecified, uncomplicated; Z79.01 Long term (current) use of anticoagulants; Z79.899 Other long term (current) drug therapy; Z88.5 Allergy status to narcotic agent; Z88.8 Allergy status to other drugs, medicaments and biological substances
CPT/HCPCS: 36415; 71010; 80053; 83735; 83880; 84484; 85025; 85610; 93005; 96361; 96374; 96375; 96376; 99285; J1170; J1200; J2060; J2405; J2765; J7030

== ENCOUNTER 2017-04-23 12:58 | Emergency (ER) | payer OTHER ==
[~2017-04-23] VITALS: Ht 172.7 cm; Wt 63.6 kg
[~2017-04-23 12:58] MED LIST changes: +HYDR50CA PO; +LOPE-147 PO; -SLO64 PO
[2017-04-23 13:01] VITALS: BP 140/93; PULSE 99; RESP 14; O2SAT 99
--- NOTE | 2017-04-23 13:10 | ED.REPORT ---
HPI-Chest Pain 40 and Over Date of Service Apr 23, 2017 ED Provider: Virgilio Florentino MD Pt is a 41 y/o male anticoagulated on Warfarin w/ a hx of CHF with EF 30-35% in 11/29, ventricular compaction syndrome, HTN, presenting to the ED c/o CP onset 07 :00 this morning. The patient initially believed he was experiencing a panic attack but the pain persisted and was much more intense. He is still experiencing the pain mildly. He c/o associated SOB. Pt denies orthopnea, fever , chills, cough. He has no history of CAD or WI. His pain is somewhat exacerbated by exertion. He has been taking his medications as prescribed but hasn't been on the Metoprolol but his PCP stopped this and deferred this to the referral cookie padder. He has not followed up with cardiology since his discharge. I reviewed the most recent hospitalization dated 11/27/16-11/28/16. He was diagnosed with new-onset CHF and at that time he was noted to have an echocardiogram with dilated left ventricle, global hypokinesis, and EF of 30-35% . The echo was also remarkable for signs of ventricular compaction syndrome. He had serial cardiac biomarkers during that hospitalization which were negative. The underlying cause of his CHF is currently unknown. During the admission he was not diuresed as he was not felt to be significantly volume overloaded. He was placed on Warfarin for "ventricular compaction syndrome". He was discharged on 20 mg Lasix daily, Metoprolol 25 mg daily, Lisinopril 20 mg BID, and Warfarin 10 mg daily. He also takes Oxycodone for chronic pain. Nursing Notes Stated Complaint: CHEST PAIN Chief Complaint: Chest Pain Nursing Notes Reviewed: Yes Allergies: Coded Allergies: promethazine (Verified Allergy, Unknown, hallucinations, 03/27/17) hydrocodone (Verified Adverse Reaction, Mild, itching, 03/27/17) Scheduled Dicyclomine (Bentyl) 10 Mg Capsule 20 MG PO BID Furosemide (Lasix) 20 Mg Tablet 20 MG PO DAILY Lisinopril (Lisinopril) 20 Mg Tablet 20 MG PO BID Metoclopramide (Reglan) 10 Mg Tablet 10 MG PO TID Promethazine (Promethazine) 12.5 Mg Tablet 25 MG PO DAILY Warfarin Sodium (Warfarin Sodium) 10 Mg Tablet 10 MG PO DAILY Scheduled PRN Ondansetron ODT (Zofran ODT) 4 Mg Tablet 4 MG PO Q4H PRN PRN For Nausea General Time Seen by MD: 13:08 Chief Complaint Chest pain Hx Obtained From: Patient Arrived By: Walk-in Sudden in Onset?: Yes Onset Occurred: 5 - 8 hours ago Symptom Duration: Since onset Location: : Substernal Quality: Painful Radiation: : Does not radiate Severity: Current: Mild Severity: Maximum: Moderate Past Medical History 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 Adnoids Reports: Cholecystectomy Smoking History Current Every Day Smoker Social History Alcohol Use: "Social" Drug Use: Denies drug use Other Social History: Smokeless tobacco, Good social support Ambulatory Status Independent Review of Systems Constitutional: Denies: Chills, Fever Respiratory: Reports: Shortness of breath, Denies: Non-productive cough Cardiovascular: Reports: Chest pain, Denies: Dyspnea on exertion, Edema GI: Denies: Abdominal pain, Diarrhea, Nausea, Vomiting Complete sys rev & neg: except as marked. Physical Exam Initial Vital Signs Vital Signs (First) Date Time Temp Pulse Resp B/P Pulse Ox O2 Delivery O2 Flow Rate FiO2 04/23/17 13:01 36.5 99 14 140/93 99 Room Air Initial VS: Reviewed, Vital signs normal Head / Eyes: Atraumatic, Normocephalic, PERRL ENT: Mucous membranes moist, Conjunctiva normal, No scleral icterus Neck: Supple, Full range of motion Extremities: Vascular intact, Neuro intact, No swelling, No tenderness Skin: Warm, Dry, No cyanosis Neurologic: Alert, Oriented, Nonfocal Psychiatric: Mood/affect normal, Behavior normal, Normal thought content General/Constitutional: Awake, Alert, No acute distress, Well appearing, Cooperative, Not toxic appearing Respiratory / Chest: Atraumatic, Breath sounds NL, Breath sounds = bilat, No respiratory distress, No rales, No rhonchi, No wheezing, No retractions, No stridor, No chest tenderness Cardiovascular: Heart rate NL, Regular rhythm, Heart sounds NL, No gallop, No murmurs, No rubs, Cap refill not delayed, Peripheral circulation NL Abdomen: Atraumatic, Soft, Non-tender, No guarding, No rebound, No distention, No palpable mass Interpretation & Diagnostics Lab Results Interpretation Result Diagram: 04/23/17 1315 04/23/17 1315 Test 04/23/17 13:15 White Blood Count 7.3th/mm3 (3.8-10.1) Red Blood Count 3.92mil/mm3 (4.40-5.80) Hemoglobin 12.7g/dL (13.8-17.2) Hematocrit 36.7% (41.0-50.0) Mean Corpuscular Volume 93.6fL (81-100) Mean Corpuscular Hemoglobin 32.4pg (27.0-35.0) Mean Corpuscular Hemoglobin Concent 34.6% (32.0-37.0) Red Cell Distribution Width 12.6% (12.3-15.4) Platelet Count 210bil/L (150-400) Neutrophils (%) (Auto) 63.0% (40-74) Lymphocytes (%) (Auto) 26.6% (14-46) Monocytes (%) (Auto) 9.3% (4-12) Eosinophils (%) (Auto) 0.7% (0-5) Basophils (%) (Auto) 0.3% (0-3) Prothrombin Time 19.1sec (8.1-12.5) Prothromb Time International Ratio 1.76ratio Sodium Level 136mEq/L (134-144) Potassium Level 3.4mEq/L (3.5-5.2) Chloride Level 98mEq/L (97-108) Carbon Dioxide Level 23mmol/L (18-29) Blood Urea Nitrogen 10mg/dL (6-24) Creatinine 0.43mg/dL (0.76-1.27) Estimat Glomerular Filtration Rate 232mL/min (>59) Glucose Level 106mg/dL (60-99) Calcium Level 9.9mg/dL (8.5-10.1) Magnesium Level 1.7mg/dL (1.6-2.6) Total Bilirubin 0.6mg/dL (0.0-1.2) Aspartate Amino Transf (AST/SGOT) 50U/L (0-50) Alanine Aminotransferase (ALT/SGPT) 36U/L (0-44) Alkaline Phosphatase 93U/L (25-150) Troponin T < 0.010ug/L (0.0-0.011) Pro-B-Type Natriuretic Peptide 99.08pg/mL (0-86) Total Protein 7.8g/dL (6.4-8.4) Albumin 4.3g/dL (3.4-5.0) Hold Ac Top Tube Received (Received) ECG Interpretation ECG Interpretation: Sinus rhythm rate 93 Voltage criteria for LVH Compared to prior dated 03/28/17 there are no acute changes present Time: 13:25 Interpreted by: ED physician Normal ECG Interpretation: No acute ischemic changes, Normal axis, Normal intervals X-Ray Chest Interpretation Chest Xray Interpretation: IMPRESSION: 1. No acute cardiopulmonary disease. 2. Small nodular opacity in the left lung base measuring up to 6 mm may represent confluent vascular and bony structures versus a pulmonary nodule. Consider repeat PA and lateral study for further evaluation. Findings discussed with Dr. Florentino on 04/23/17 at 2 PM. Dictated by: Phu Walsh M.D. on 04/23/2017 at 13:58 Approved by: Phu Walsh M.D. on 04/23/2017 at 14:03 View: Portable, 1 view Interpretation / Wet Read by: Interpret - Radiologist Re-Eval/Medical Decision Med Decision/Clinical Course Pt is a 41 y/o male anticoagulated on Warfarin w/ a hx of CHF with EF 30-35% in 11/29, ventricular compaction syndrome, HTN, presenting to the ED c/o CP onset 07 :00 this morning. Pain reportedly came on in the setting of a "panic attack" and his pain gradually resolving ever since. Here in the emergency department the patient is anxious though otherwise afebrile, with stable vital signs and in no apparent distress. Patient was treated with 324 mg of aspirin as well as 0.5 mg of oral Ativan for his anxiety. He reported significant improvement in his symptoms. Labs notable as below: CBC: Unremarkable CMP: Unremarkable Troponin: negative BNP: 99 Coags: INR: 1.76 ECG: Sinus rhythm rate 93 Voltage criteria for LVH Compared to prior dated 03/28/17 there are no acute changes present No acute ischemic changes, Normal axis, Normal intervals Chest x-ray: 1. No acute cardiopulmonary disease. 2. Small nodular opacity in the left lung base measuring up to 6 mm may represent confluent vascular and bony structures versus a pulmonary nodule. Consider repeat PA and lateral study for further evaluation. Findings discussed with Dr. Florentino on 04/23/17 at 2 PM. At this time, no evidence of acute coronary syndrome. Initial troponin and EKG are reassuring in the setting of over 6 hours of symptoms. The patient has no history of coronary artery disease and presentation is unconvincing for acute coronary syndrome. While he does have known cardiomyopathy this is not thought to be ischemic in nature. Presentation is not suggestive of acute pulmonary embolism. No pneumonia or pneumothorax. Overall presentation seems most consistent with panic/anxiety. No evidence of exacerbation of congestive heart failure without pulmonary edema on chest x-ray and BNP within normal limits. Patient admits that he has not followed up for outpatient cardiac MRI as previously recommended and therefore has been referred back to cardiology. He reports that he is comfortable and would like to go home. Patient advised to follow up for repeat chest imaging in 6 months given presence of pulmonary nodule. She is advised to follow-up with the anticoagulation clinic regarding his mildly subtherapeutic INR. Prior to discharge follow-up and return precautions were reviewed in detail with the patient who verbalized understanding and agreement with the plan. The patient was discharged in stable condition. Time of Eval: 14:10 Re-Evaluation/Progress Note: Pt rechecked. Informed pt of plan for treatment. Pt understands and agrees with plan for treatment. F/U instructions and RTER warnings given. All questions addressed. Counseled Regarding: Diagnosis, Lab results, Need for follow-up, When/why to return to ED Discharge & Departure Primary Impression: Chest pain Chest pain type: unspecified Qualified Code: R07.9 - Chest pain, unspecified Additional Impressions: Lung nodule Subtherapeutic international normalized ratio (INR) History of cardiomyopathy History of congestive heart failure Panic attack Disposition: Home Discharge Condition All VS Reviewed: Yes Condition: Stable Patient Instructions: Chest Pain (ED) Additional Instructions: Thank you for seeking care at the emergency room. It is difficult for us to make definitive diagnoses in the ED. The cause of your pain is unclear at this moment but does not seem emergent. Your labs, EKG, and chest x-ray were reassuring. The lab markers for heart failure and heart attack were negative. The chest x-ray did show a possible very small nodule on your left lung. The cause of this is unknown at this point and is not emergent at this point. The radiologist recommended that you discuss this with your primary care doctor and have repeat imaging in 6 months. Your INR was slightly subtherapeutic at 1.76 today. Continue to take your Warfarin and discuss this number with the [facility]. You should follow-up with your primary doctor in the next week. If you do not have a primary care doctor, the [facility] would be happy to see you. You have also been referred to cardiology. You need to call the referral number below to schedule an appointment. Tell them that I recommended follow-up within the next 1-2 weeks. You should return to the ED immediately if you develop high fever, worsening chest pain, passing out, worsening trouble breathing, profuse sweating, or any other concerning signs or symptoms. Thank you for letting us partake in your care today. Referrals: Sergio Chavez MD Attestation Portions of this note were transcribed by Jan Constantino. I, Dr. Florentino personally performed the history, physical exam and medical decision-making; I reviewed and confirmed the accuracy of the information in the transcribed note. Signed by Rohini Schofield, 04/23/17 - 1400 copies to: Sergio Chavez MD, Beck O MD Apr 23, 2017 13:10 JAN CONSTANTINO Apr 23, 2017 13:16
[2017-04-23 13:27] LABS: BASOPHILS % (AUTO) 0.3 % (0-3); EOSINOPHILS % (AUTO) 0.7 % (0-5); MONOCYTES % (AUTO) 9.3 % (4-12); Mean Corpuscular Hemoglobin 32.4 pg (27.0-35.0); Mean Corpuscular Volume 93.6 fL (81-100); Platelet Count 210 bil/L (150-400)
[2017-04-23] MEDS ORDERED: LORazepam 1 mg Tablet PO ONE (13:45)
[2017-04-23 13:52] VITALS: BP 128/70; PULSE 95; RESP 17; O2SAT 97
[2017-04-23] MEDS ORDERED: PROM12.510 PO (13:57)
[2017-04-23] MEDS ORDERED: LISI-567 PO (13:57)
[2017-04-23] MEDS ORDERED: METO-301 PO (13:57)
[2017-04-23] MEDS ORDERED: ONDA4TAB9 PO (13:57)
[2017-04-23] MEDS ORDERED: WARF10TA4 PO (13:57)
[2017-04-23] MEDS ORDERED: DICY10CA56 PO (13:57)
[2017-04-23 14:04] LABS: Magnesium 1.7 mg/dL (1.6-2.6)
--- NOTE | 2017-04-23 14:05 | DRSVH ---
PROCEDURE: X-RAY CHEST ONE VIEW, PORTABLE ([id number]) INDICATIONS: CHEST PAIN TECHNIQUE: One view of the chest was acquired. COMPARISON: [facility], CR, XR CHEST 1VW (PORTABLE), 12/01/2016, 4:33. [facility], CR, XR CHEST 1VW (PORTABLE), 03/28/2017, 7:04. FINDINGS: Surgical changes and devices: None. Lungs and pleura: No pleural effusions or pneumothorax. No acute consolidation. There is a small 6 mm nodular opacity in the left lung base which appears increased in prominence. Mediastinum: Mediastinal contours appear normal. Heart size is normal. Bones and chest wall: No suspicious bony lesions. Overlying soft tissues appear unremarkable. IMPRESSION: 1. No acute cardiopulmonary disease. 2. Small nodular opacity in the left lung base measuring up to 6 mm may represent confluent vascular and bony structures versus a pulmonary nodule. Consider repeat PA and lateral study for further alejandro luation. Findings discussed with Dr. Florentino on 04/23/17 at 2 PM. Dictated by: Phu Walsh M.D. on 04/23/2017 at 13:58 Approved by: Phu Walsh M.D. on 04/23/2017 at 14:03
[2017-04-23 14:07] LABS: INR 1.76 ratio
[2017-04-23 14:09] LABS: TROPONIN T < 0.010 ug/L (0.0-0.011)
[2017-04-23 14:25] VITALS: BP 128/70
[2017-04-23 14:26] VITALS: BP 128/70; PULSE 95; RESP 17; O2SAT 97
== END 2017-04-23 14:26 | disposition home or self-care (01) ==
LOC: SED 12:58
DX: R07.9 Chest pain, unspecified (principal); J98.4 Other disorders of lung; F41.0 Panic disorder [episodic paroxysmal anxiety]; I50.9 Heart failure, unspecified; I42.8 Other cardiomyopathies; F17.210 Nicotine dependence, cigarettes, uncomplicated; G89.29 Other chronic pain; R79.1 Abnormal coagulation profile; G43.A0 Cyclical vomiting, in migraine, not intractable; Z90.49 Acquired absence of other specified parts of digestive tract; Z79.01 Long term (current) use of anticoagulants; Z88.5 Allergy status to narcotic agent; Z88.8 Allergy status to other drugs, medicaments and biological substances

== ENCOUNTER 2017-04-26 08:46 | Emergency (ER) | payer OTHER ==
[~2017-04-26] VITALS: Ht 167.6 cm; Wt 68.2 kg
[~2017-04-26 08:46] MED LIST changes: -HYDR50CA PO; +LISI-567 PO; -LISI10TA PO; -LOPE-147 PO; +METO-301 PO; -METO25TA99 PO; -ONDA-54 PO; +ONDA4TAB9 PO; -OXYC-465 PO; +PROM12.510 PO; +WARF10TA4 PO; -WARF2.5T82 PO
[2017-04-26 08:49] VITALS: BP 162/118; PULSE 128; RESP 22; O2SAT 97
[2017-04-26] MEDS ORDERED: 0.9% Sodium Chloride 1,000 ML IV ONE (09:01)
--- NOTE | 2017-04-26 09:01 | ED.REPORT ---
HPI-NVD Date of Service Apr 26, 2017 ED Provider: Mario Farnsworth MD Pt is a 41 year old male with a hx of CHF, HTN, anxiety and cyclical vomiting on Warfarin presenting to the ED complaining of vomiting and abdominal pain onset this morning. He describes this as an uncharacteristically severe episode of cyclical vomiting which he has had for 11 years, Denies fever, or other symptoms at this time. He last had an episode 3 weeks ago. Pt states that episodes are brought on by stress, and that he recently had an anxiety attack and has not been sleeping since. Nursing Notes Stated Complaint: VOMITTING Chief Complaint: General Complaint Nursing Notes Reviewed: Yes ([employer], [employer] not reconciled) Allergies: Coded Allergies: promethazine (Verified Allergy, Unknown, hallucinations, 03/27/17) hydrocodone (Verified Adverse Reaction, Mild, itching, 03/27/17) Scheduled Dicyclomine (Bentyl) 10 Mg Capsule 20 MG PO BID Furosemide (Lasix) 20 Mg Tablet 20 MG PO DAILY Lisinopril (Lisinopril) 20 Mg Tablet 20 MG PO BID Metoclopramide (Reglan) 10 Mg Tablet 10 MG PO TID Promethazine (Promethazine) 12.5 Mg Tablet 25 MG PO DAILY Warfarin Sodium (Warfarin Sodium) 10 Mg Tablet 10 MG PO DAILY Scheduled PRN Ondansetron ODT (Zofran ODT) 4 Mg Tablet 4 MG PO Q4H PRN PRN For Nausea General Time Seen by MD: 08:59 Chief Complaint Vomiting Hx Obtained From: Patient Arrived By: Walk-in Onset Occurred: Just prior to arrival Symptom Duration: Since onset Location: : Diffuse Quality: Painful Severity: Current: Severe Severity: Maximum: Severe Associated with: Reports: Abdominal pain, Anxiety, Denies: Fever Recent Healthcare: No recent hospitalization, Recent doctor visit Similar Sx Previous: Yes Past Medical History 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 Estimated EF is 30-35% Past Medical History Anxiety Heart defect- nonspecific Hypertension Chronic pain on Oxycodone Cyclical vomiting - uncertain etiology CHF with underlying cause unknown - last EF 11/29 30-35% "Ventricular compaction syndrome" - on Warfarin Alcohol abuse Past Surgical History Testicular hernia repair Hand and finger surg. Adnoids Reports: Cholecystectomy Smoking History Current Every Day Smoker Social History Alcohol Use: "Social" Drug Use: Denies drug use Other Social History: Smokeless tobacco, Good social support Ambulatory Status Independent Review of Systems Constitutional: Denies: Fever GI: Reports: Abdominal pain, Nausea, Vomiting Physical Exam Initial Vital Signs Vital Signs (First) Date Time Temp Pulse Resp B/P Pulse Ox O2 Delivery O2 Flow Rate FiO2 04/26/17 08:49 36.6 128 22 162/118 97 Room Air Initial VS: Reviewed, Vital signs abnormal Head / Eyes: Atraumatic, Normocephalic, PERRL ENT: Mucous membranes moist, Conjunctiva normal, No scleral icterus Skin: Warm, Dry, No cyanosis Neurologic: Alert, Oriented, Nonfocal Psychiatric: Mood/affect normal, Behavior normal, Normal thought content General/Constitutional: Awake, Alert Behavior: Positive: Anxious Wretching Abdomen: Atraumatic, Soft, Non-tender, No guarding, No rebound Respiratory / Chest: Atraumatic, Breath sounds NL, Breath sounds = bilat, No respiratory distress, No rales Cardiovascular: Regular rhythm Heart Rate / Rhythm: Positive: Tachycardia Lower Extremity / Pelvis / MS: No edema Interpretation & Diagnostics Lab Results Interpretation Result Diagram: 04/26/17 0905 04/26/17 0905 Test 04/26/17 09:05 White Blood Count 8.5th/mm3 (3.8-10.1) Red Blood Count 4.16mil/mm3 (4.40-5.80) Hemoglobin 13.6g/dL (13.8-17.2) Hematocrit 39.2% (41.0-50.0) Mean Corpuscular Volume 94.2fL (81-100) Mean Corpuscular Hemoglobin 32.7pg (27.0-35.0) Mean Corpuscular Hemoglobin Concent 34.7% (32.0-37.0) Red Cell Distribution Width 13.0% (12.3-15.4) Platelet Count 222bil/L (150-400) Neutrophils (%) (Auto) 60.6% (40-74) Lymphocytes (%) (Auto) 28.8% (14-46) Monocytes (%) (Auto) 9.5% (4-12) Eosinophils (%) (Auto) 0.8% (0-5) Basophils (%) (Auto) 0.1% (0-3) Prothrombin Time 18.7sec (8.1-12.5) Prothromb Time International Ratio 1.73ratio Sodium Level 139mEq/L (134-144) Potassium Level 3.2mEq/L (3.5-5.2) Chloride Level 102mEq/L (97-108) Carbon Dioxide Level 21mmol/L (18-29) Blood Urea Nitrogen 9mg/dL (6-24) Creatinine 0.57mg/dL (0.76-1.27) Estimat Glomerular Filtration Rate 167mL/min (>59) Glucose Level 103mg/dL (60-99) Lactic Acid Level 1.1mmol/L (0.4-2.0) Calcium Level 9.7mg/dL (8.5-10.1) Total Bilirubin 0.5mg/dL (0.0-1.2) Aspartate Amino Transf (AST/SGOT) 41U/L (0-50) Alanine Aminotransferase (ALT/SGPT) 43U/L (0-44) Alkaline Phosphatase 88U/L (25-150) Total Protein 8.2g/dL (6.4-8.4) Albumin 4.6g/dL (3.4-5.0) Lipase 44U/L (13-60) Lab Results Interpretation: CBC normal CMP mild hypokalemia consistent with vomiting INR marginal subtherapeutic Re-Eval/Medical Decision Med Decision/Clinical Course this is a 41-year-old male with a history of cyclic vomiting syndrome as well as a history of cardiomyopathy and CHF from a cardiomyopathy presents complaining of an exacerbation of cyclic vomiting, which she attributes to stress. He is retching repeatedly, appears uncomfortable. He does not have any clinical findings of a volume overload. He has clear lungs, no edema. His abdomen is soft nontender. In IV placed and received lorazepam, Dilaudid, and ondansetron with resolution of symptoms. He wishes clinically appeared well. Labs are normal with the exception of a subtherapeutic INR. Patient only takes 10 mg warfarin tonight, and I have recommended increasing this to 12.5 mg reports he has a next day follow-up with INR clinic. I am not finding evidence of ischemic bowel or acute surgical abdomen findings to indicate a need for acute emergent imaging. Patient reports this is typical of his cyclic vomiting, his symptoms are now resolved his couple discharged home. I think this is reasonable. Routine and return precautions reviewed. Patient is discharged, clinically well-appearing, ambulatory, no visible discomfort or distress. Source of Hx: Old records Re-Evaluation/Progress : Time of Eval: 11:47 Patient Status: Condition improved Re-Evaluation/Progress Note: Pt ready for discharge. Understands and agrees with plan. Counseled Regarding: Diagnosis, Lab results, Need for follow-up, When/why to return to ED Discharge & Departure Impression: Primary Impression: Cyclic vomiting syndrome Vomiting Intractability: non-intractable Nausea presence: with nausea Qualified Code: G43.A0 - Cyclical vomiting, not intractable Additional Impressions: Panic attack Subtherapeutic international normalized ratio (INR) Disposition: Home Discharge Condition All VS Reviewed: Yes Condition: Improved Additional Instructions: 1. Continue her regular medications. 2. Your blood work today was normal and your INR was still just slightly low at 1.7. 3. Take 12.5mg of warfarin tonight and follow up with the [facility] as planned. 4. No driving for the next 4 hours. Referrals: Camelia Taylor DO (PCP) Rohini Attestation Portions of this note were transcribed by Minda Gavin. I, Dr. Farnsworth personally performed the history, physical exam and medical decision-making; I reviewed and confirmed the accuracy of the information in the transcribed note. Signed by: Rohini Renee, 04/26/17 at 1149. copies to: Camelia Taylor Matthew F MD Apr 26, 2017 09:01 MINDA GAVIN Apr 26, 2017 09:14
[2017-04-26] MEDS ORDERED: Ondansetron 2 mg/mL 2 mL Inj IVPUSH ONE ×2 (09:05→09:20)
[2017-04-26 09:16] LABS: BASOPHILS % (AUTO) 0.1 % (0-3); EOSINOPHILS % (AUTO) 0.8 % (0-5); MONOCYTES % (AUTO) 9.5 % (4-12); Mean Corpuscular Hemoglobin 32.7 pg (27.0-35.0); Mean Corpuscular Volume 94.2 fL (81-100); NEUTROPHILS % (AUTO) 60.6 % (40-74); Platelet Count 222 bil/L (150-400)
[2017-04-26] MEDS ORDERED: HYDROmorphone 1 mg/mL Inj IVPUSH ONE ×2 (09:20→10:05)
[2017-04-26 09:37] LABS: INR 1.73 ratio
[2017-04-26] MEDS ORDERED: HYDROmorphone 0.5 mg/0.5 mL iSecure Syringe IVPUSH ONE (10:40)
[2017-04-26 12:11] VITALS: BP 142/90; PULSE 105; RESP 15; O2SAT 96
== END 2017-04-26 12:11 | disposition home or self-care (01) ==
LOC: SED 08:46
DX: G43.A0 Cyclical vomiting, in migraine, not intractable (principal); F41.0 Panic disorder [episodic paroxysmal anxiety]; R79.1 Abnormal coagulation profile; I50.9 Heart failure, unspecified; I10 Essential (primary) hypertension; I42.8 Other cardiomyopathies; G89.29 Other chronic pain; F17.200 Nicotine dependence, unspecified, uncomplicated; Z79.891 Long term (current) use of opiate analgesic; Z79.01 Long term (current) use of anticoagulants; Z88.8 Allergy status to other drugs, medicaments and biological substances; Z88.5 Allergy status to narcotic agent
CPT/HCPCS: 36415; 80053; 83605; 83690; 85025; 85610; 96361; 96374; 96375; 96376; 99285; J1170; J2060; J2405; J7030

== ENCOUNTER 2017-06-16 23:57 | Emergency (ER) | payer OTHER ==
[~2017-06-16] VITALS: Ht 172.7 cm; Wt 65.9 kg
[2017-06-17 00:15] VITALS: BP 166/105; PULSE 111; RESP 22; O2SAT 98
[2017-06-17 00:41] VITALS: BP 154/99; PULSE 91; RESP 14; O2SAT 98
--- NOTE | 2017-06-17 00:59 | ED.REPORT ---
HPI-NVD Date of Service Jun 17, 2017 ED Provider: Mitchel Kimble MD A 41 year old male with a history of anxiety, hypertension, cyclical vomiting, CHF, EtOH abuse, chronic pain on oxycodone and "Ventricular compaction syndrome " on Warfarin presents to the ED with N/V/D that began 2 days ago. He reports multiple episodes of emesis and diarrhea. His symptoms initially began as a nausea and vomiting and progressed into diarrhea and abdominal discomfort. The patient's more recent INR was 3 (1 week ago). Patient was seen in the ED twice in 04/2017 for cyclical vomiting syndrome which presented with similar symptoms. He denies any hematemesis or hematochezia. Nursing Notes Stated Complaint: VOMITING Chief Complaint: Male Abdominal Pain Nursing Notes Reviewed: Yes Allergies: Coded Allergies: promethazine (Verified Allergy, Unknown, hallucinations, 03/27/17) hydrocodone (Verified Adverse Reaction, Mild, itching, 03/27/17) Scheduled Dicyclomine (Bentyl) 10 Mg Capsule 20 MG PO BID Furosemide (Lasix) 20 Mg Tablet 20 MG PO DAILY Lisinopril (Lisinopril) 20 Mg Tablet 20 MG PO BID Metoclopramide (Reglan) 10 Mg Tablet 10 MG PO TID Promethazine (Promethazine) 12.5 Mg Tablet 25 MG PO DAILY Warfarin Sodium (Warfarin Sodium) 10 Mg Tablet 10 MG PO DAILY Scheduled PRN Ondansetron ODT (Zofran ODT) 4 Mg Tablet 4 MG PO Q4H PRN PRN For Nausea General Time Seen by MD: 00:58 Chief Complaint Nausea, Vomiting, Diarrhea Hx Obtained From: Patient Arrived By: Walk-in Onset Occurred: 2 days ago Symptom Duration: Since onset Vomiting: Vomiting food Diarrhea: Diarrhea is watery Location: : Epigastric Quality: Aching Radiation: : Does not radiate Severity: Current: Mild Severity: Maximum: Mild Associated with: Reports: Abdominal pain, Denies: Hematemesis Pertinent Negative: Pt denies other symptoms Recent Healthcare: No recent hospitalization, Recent doctor visit Past Medical History 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 Estimated EF is 30-35% Past Medical History Anxiety Heart defect- nonspecific Hypertension Chronic pain on Oxycodone Cyclical vomiting - uncertain etiology CHF with underlying cause unknown - last EF 11/29 30-35% "Ventricular compaction syndrome" - on Warfarin Alcohol abuse Past Surgical History Testicular hernia repair Hand and finger surg. Adnoids Reports: Cholecystectomy Smoking History Current Every Day Smoker Social History Alcohol Use: "Social" Drug Use: Denies drug use Other Social History: Smokeless tobacco, Good social support, Local resident Ambulatory Status Independent Review of Systems GI: Reports: Abdominal pain (discomfort), Diarrhea, Nausea, Vomiting, Denies: Hematemesis, Hematochezia Complete sys rev & neg: except as marked. Physical Exam Initial Vital Signs Vital Signs (First) Date Time Temp Pulse Resp B/P Pulse Ox O2 Delivery O2 Flow Rate FiO2 06/17/17 00:15 37.6 111 22 166/105 98 Room Air Initial VS: Reviewed, Vital signs abnormal Neck: Supple, Non-tender, Full range of motion Extremities: Vascular intact, Neuro intact, No swelling, No tenderness Skin: Warm, Dry, No cyanosis Neurologic: Alert, Oriented, Nonfocal Psychiatric: Mood/affect normal, Behavior normal, Normal thought content General/Constitutional: Awake, Alert Distress / Hydration: Positive: Distress moderate Appearance / Presentation: Positive: Uncomfortable Abdomen: Atraumatic, Soft, Non-tender Respiratory / Chest: Atraumatic, Breath sounds NL, Breath sounds = bilat, No respiratory distress Cardiovascular: Heart rate NL, Regular rhythm, Heart sounds NL Interpretation & Diagnostics Lab Results Interpretation Test 06/17/17 01:16 Hold Purple Top Tube Received (Received) Hold Blue Top Tube Received (Received) Hold Geraldine Top Tube Received (Received) Re-Eval/Medical Decision Med Decision/Clinical Course 41-year-old male with history of cyclical vomiting presents with nausea vomiting and abdominal pain. He was given fluids, Ativan, Dilaudid, and Zofran with eventual relief of his discomfort. He will be discharged home. It is likely that at least part of his symptoms are due to opiate withdrawal when he is unable to take his opiate pain medicine orally. Re-Evaluation/Progress #1: Time of Eval: 03:02 Patient Status: Condition improved, Pain improved Re-Evaluation/Progress Note: His nausea and pain have improved but are stil present. He is requesting more medication at this time. Re-Evaluation/Progress #2: Time of Eval: 05:39 Patient Status: Condition improved Re-Evaluation/Progress Note: The patient is rechecked. He is informed of his reassuring results and the plan to discharge. All questions are addressed. Counseled Regarding: Diagnosis, Lab results, Need for follow-up, When/why to return to ED Discharge & Departure Impression: Primary Impression: Cyclical vomiting Vomiting Intractability: intractable Nausea presence: with nausea Qualified Code: G43.A1 - Cyclical vomiting, intractable Disposition: Home Discharge Condition All VS Reviewed: Yes Condition: Improved Patient Instructions: Acute Nausea and Vomiting (ED) Additional Instructions: You received saline, Zofran (ondansetron) and Dilaudid (hydromorphone). Home to sleep. Resume your regular medications. Follow-up as needed for recurrent symptoms. Referrals: Camelia Taylor DO (PCP) Scribe Attestation Portions of this note were transcribed by Karl Finney. I, Dr. Kimble personally performed the history, physical exam and medical decision-making; I reviewed and confirmed the accuracy of the information in the transcribed note. copies to: Camelia Taylor Howard L MD Jun 17, 2017 00:59 KARL FINNEY Jun 17, 2017 01:04
[2017-06-17] MEDS: Ondansetron 2 mg/mL 2 mL Inj IVPUSH PRN ×2 (01:08→01:20)
[2017-06-17] MEDS: HYDROmorphone 1 mg/mL Inj IVPUSH PRN ×3 (01:43→02:39)
[2017-06-17] MEDS ORDERED: 0.9% Sodium Chloride 1,000 ML IV ONE ×2 (03:05→04:40)
[2017-06-17 03:26] VITALS: BP 144/87; PULSE 81; RESP 11; O2SAT 96
[2017-06-17 04:33] VITALS: BP 145/82; PULSE 77; RESP 14; O2SAT 96
[2017-06-17] MEDS ORDERED: HYDROmorphone 1 mg/mL Inj IVPUSH ONE (05:10)
[2017-06-17 05:49] VITALS: BP 144/84; PULSE 82; RESP 12; O2SAT 96
[2017-06-17 06:14] VITALS: BP 142/86; PULSE 79; RESP 13; O2SAT 96
== END 2017-06-17 06:15 | disposition home or self-care (01) ==
LOC: SED 23:57
DX: G43.A1 Cyclical vomiting, in migraine, intractable (principal); R19.7 Diarrhea, unspecified; I11.0 Hypertensive heart disease with heart failure; I50.9 Heart failure, unspecified; F41.9 Anxiety disorder, unspecified; F17.200 Nicotine dependence, unspecified, uncomplicated; Z88.5 Allergy status to narcotic agent; Z88.8 Allergy status to other drugs, medicaments and biological substances; Z79.01 Long term (current) use of anticoagulants
CPT/HCPCS: 96361; 96374; 96375; 96376; 99284; J1170; J2060; J2405; J7030

== ENCOUNTER 2017-06-18 23:32 | Emergency (ER) | payer OTHER ==
[~2017-06-18] VITALS: Ht 172.7 cm; Wt 65.9 kg
[2017-06-18 23:40] VITALS: BP 154/97; PULSE 101; RESP 22; O2SAT 100
--- NOTE | 2017-06-19 00:07 | ED.REPORT ---
HPI-Abd Pain M 40 and Over Date of Service Jun 19, 2017 ED Provider: Mario Farnsworth MD The pt is a 41 y/o male w/ a hx of CHF, HTN, and cyclic vomiting presenting to the ED complaining of abdominal pain for the onset two days ago. The pt reports diarrhea for the last two days and nausea and vomiting tonight. He has been drinking Gatorade to stay hydrated. The pt was just in the ER two nights ago for the same symptoms. Nursing Notes Stated Complaint: SEVERE PAIN, ADOMAINL Chief Complaint: Male Abdominal Pain Nursing Notes Reviewed: Yes (Arvinas not reconciled) Allergies: Coded Allergies: promethazine (Verified Allergy, Unknown, hallucinations, 03/27/17) hydrocodone (Verified Adverse Reaction, Mild, itching, 03/27/17) Scheduled Dicyclomine (Bentyl) 10 Mg Capsule 20 MG PO BID Furosemide (Lasix) 20 Mg Tablet 20 MG PO DAILY Lisinopril (Lisinopril) 20 Mg Tablet 20 MG PO BID Metoclopramide (Reglan) 10 Mg Tablet 10 MG PO TID Promethazine (Promethazine) 12.5 Mg Tablet 25 MG PO DAILY Warfarin Sodium (Warfarin Sodium) 10 Mg Tablet 10 MG PO DAILY Scheduled PRN Ondansetron ODT (Zofran ODT) 4 Mg Tablet 4 MG PO Q4H PRN PRN For Nausea Ondansetron ODT (Ondansetron ODT) 8 Mg Tab.rapdis 8 MG PO Q4H PRN PRN For Nausea General Time Seen by MD: 00:05 Chief Complaint Abdominal pain Hx Obtained From: Patient, Spouse Arrived By: Walk-in Sudden in Onset?: Yes Onset Occurred: 2 days ago Symptom Duration: Since onset Recent Healthcare: No recent hospitalization, Recent doctor visit Similar Sx Previous: Yes Past Medical History 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 Estimated EF is 30-35% Past Medical History Anxiety Heart defect- nonspecific Hypertension Chronic pain on Oxycodone Cyclical vomiting - uncertain etiology CHF with underlying cause unknown - last EF 11/29 30-35% "Ventricular compaction syndrome" - on Warfarin Alcohol abuse Past Surgical History Testicular hernia repair Hand and finger surg. Adnoids Reports: Cholecystectomy Smoking History Current Every Day Smoker Social History Alcohol Use: "Social" Drug Use: Denies drug use Other Social History: Smokeless tobacco, Good social support, Local resident Ambulatory Status Independent Review of Systems GI: Reports: Abdominal pain, Diarrhea, Nausea, Vomiting Complete sys rev & neg: except as marked. Physical Exam Initial Vital Signs Vital Signs (First) Date Time Temp Pulse Resp B/P Pulse Ox O2 Delivery O2 Flow Rate FiO2 06/18/17 23:40 36.6 101 22 154/97 100 Room Air Initial VS: Reviewed, Vital signs abnormal (HR 101) Head / Eyes: Atraumatic, Normocephalic, PERRL ENT: Mucous membranes moist, Conjunctiva normal, No scleral icterus Neck: Supple, Non-tender, Full range of motion Extremities: Vascular intact, Neuro intact, No swelling, No tenderness Skin: Warm, Dry, No cyanosis Neurologic: Alert, Oriented, Nonfocal General/Constitutional: Awake, Alert Pt is miserable and rolled up on side in pain Respiratory / Chest: Atraumatic, Breath sounds NL, Breath sounds = bilat Cardiovascular: Heart rate NL, Regular rhythm, Heart sounds NL Abdomen: Atraumatic, Soft, Non-tender Back: Atraumatic, Inspection NL, Full range of motion Interpretation & Diagnostics Lab Results Interpretation Result Diagram: 06/19/17 0100 06/19/17 0135 Test 06/19/17 01:00 06/19/17 01:35 White Blood Count 10.5th/mm3 (3.8-10.1) Red Blood Count 4.05mil/mm3 (4.40-5.80) Hemoglobin 12.8g/dL (13.8-17.2) Hematocrit 36.7% (41.0-50.0) Mean Corpuscular Volume 90.6fL (81-100) Mean Corpuscular Hemoglobin 31.6pg (27.0-35.0) Mean Corpuscular Hemoglobin Concent 34.9% (32.0-37.0) Red Cell Distribution Width 13.6% (12.3-15.4) Platelet Count 371bil/L (150-400) Neutrophils (%) (Auto) 65.4% (40-74) Lymphocytes (%) (Auto) 25.8% (14-46) Monocytes (%) (Auto) 7.3% (4-12) Eosinophils (%) (Auto) 1% (0-5) Basophils (%) (Auto) 0.3% (0-3) Prothrombin Time 19.4sec (8.1-12.5) Prothromb Time International Ratio 1.79ratio Sodium Level 141mEq/L (134-144) Potassium Level 2.8mEq/L (3.5-5.2) Chloride Level 105mEq/L (97-108) Carbon Dioxide Level 22mmol/L (18-29) Blood Urea Nitrogen 6mg/dL (6-24) Creatinine 0.44mg/dL (0.76-1.27) Estimat Glomerular Filtration Rate 226mL/min (>59) Glucose Level 129mg/dL (60-99) Calcium Level 8.0mg/dL (8.5-10.1) Total Bilirubin 0.4mg/dL (0.0-1.2) Aspartate Amino Transf (AST/SGOT) 19U/L (0-50) Alanine Aminotransferase (ALT/SGPT) 11U/L (0-44) Alkaline Phosphatase 81U/L (25-150) Total Protein 6.1g/dL (6.4-8.4) Albumin 3.4g/dL (3.4-5.0) Hold Ac Top Tube Received (Received) Lab Results Interpretation: CBC normal CMP mild to moderate hypokalemia consistent with cyclic vomiting INR is slightly subtherapeutic Re-Eval/Medical Decision Med Decision/Clinical Course This is a 41-year-old male has a history of recurrent abdominal pain nausea vomiting/cyclic vomiting who presents with another exacerbation symptoms. Particularly recovered from his typical exacerbation on Monday, is worse today. These are the typical symptoms of his cyclic vomiting. He reports no atypical features. No fevers. On exam his moaning, covered in a blanket, holding an emesis basin and retching. However he has no other heart findings. He is chronically anticoagulated on warfarin. An IV was placed and received titrated medications-his preferences lorazepam, Dilaudid, and ondansetron. He received several liters of fluid. Screening labs were obtained and were unremarkable. The patient slowly made improvement over several hours. I am not finding indication for acute surgical abdomen or need for emergent imaging. Source of Hx: Old records Time of Eval: 02:34 Re-Evaluation/Progress Note: Pt rechecked. Informed pt of plan for treatment. Pt understands and agrees with plan for treatment. F/U instructions and RTER warnings given. All questions addressed. Differential Diagnosis: Positive: Acute abdominal pain, Negative: Abdominal aortic aneurysm, Appendicitis, Bowel obstruction, Esophageal rupture, Gun shot wound abdomen, Pancreatitis, Peritonitis, Stab wound abdomen Counseled Regarding: Diagnosis, Lab results, Need for follow-up, When/why to return to ED Discharge & Departure Primary Impression: Cyclical vomiting Vomiting Intractability: unspecified Nausea presence: unspecified Qualified Code: G43.A0 - Cyclical vomiting, not intractable Additional Impressions: Hypokalemia Subtherapeutic international normalized ratio (INR) Disposition: Home Vital Signs - All Vital Signs Date Time Temp Pulse Resp B/P Pulse Ox O2 Delivery O2 Flow Rate FiO2 06/18/17 23:40 36.6 101 22 154/97 100 Room Air )( All Prior VS Reviewed: Yes Condition: Stable Additional Instructions: 1. Your blood tests were normal. 2. You received considerable amount of medications tonight. Absolutely no driving. 3. You received several liters of fluid for hydration. 4. Rest. Drink small, frequent sips of fluids. Advance diet as tolerated. 5. Continue zofran (ondansetron) as needed for nausea. Referrals: Camelia Taylor DO (PCP) Scribe Attestation Portions of this note were transcribed by Naga Martinez. I, Dr. Farnsworth personally performed the history, physical exam and medical decision-making; I reviewed and confirmed the accuracy of the information in the transcribed note. copies to: Camelia Taylor Matthew F MD Jun 19, 2017 00:07 Naga Martinez Jun 19, 2017 01:15
[2017-06-19] MEDS ORDERED: 0.9% Sodium Chloride 1,000 ML IV ONE ×3 (00:15→02:40)
[2017-06-19] MEDS ORDERED: Ondansetron 2 mg/mL 2 mL Inj IVPUSH ONE (00:15)
[2017-06-19] MEDS: HYDROmorphone 1 mg/mL Inj IVPUSH PRN ×6 (00:50→02:13)
[2017-06-19 01:05] LABS: BASOPHILS % (AUTO) 0.3 % (0-3); EOSINOPHILS % (AUTO) 1 % (0-5); MONOCYTES % (AUTO) 7.3 % (4-12); Mean Corpuscular Hemoglobin 31.6 pg (27.0-35.0); Mean Corpuscular Volume 90.6 fL (81-100); NEUTROPHILS % (AUTO) 65.4 % (40-74); Platelet Count 371 bil/L (150-400)
[2017-06-19] MEDS ORDERED: ONDA8TAB10 PO (02:07)
[2017-06-19 02:14] LABS: INR 1.79 ratio
[2017-06-19] MEDS ORDERED: Potassium Chloride 20 mEq SR Tablet PO ONE (02:35)
[2017-06-19] MEDS: HYDROmorphone 0.5 mg/0.5 mL iSecure Syringe IVPUSH PRN ×2 (02:57→03:30)
[2017-06-19 04:01] VITALS: BP 148/88; PULSE 78; RESP 18; O2SAT 99
== END 2017-06-19 04:02 | disposition home or self-care (01) ==
LOC: SED 23:32
DX: G43.A0 Cyclical vomiting, in migraine, not intractable (principal); E87.6 Hypokalemia; R79.1 Abnormal coagulation profile; I11.0 Hypertensive heart disease with heart failure; I50.9 Heart failure, unspecified; F41.9 Anxiety disorder, unspecified; F17.200 Nicotine dependence, unspecified, uncomplicated; Z90.49 Acquired absence of other specified parts of digestive tract; Z88.1 Allergy status to other antibiotic agents; Z88.5 Allergy status to narcotic agent
CPT/HCPCS: 36415; 80053; 85025; 85610; 96361; 96374; 96375; 96376; 99285; J1170; J2060; J2405; J7030

== ENCOUNTER 2017-06-20 05:28 | Emergency (ER) | payer OTHER ==
[~2017-06-20] VITALS: Ht 172.7 cm; Wt 66.4 kg
[~2017-06-20 05:28] MED LIST changes: +ONDA8TAB10 PO
[2017-06-20 05:34] VITALS: BP 170/112; PULSE 91; RESP 22; O2SAT 100
--- NOTE | 2017-06-20 06:04 | ED.REPORT ---
HPI-Abd Pain M 40 and Over Date of Service Jun 20, 2017 ED Provider: Georges Cespedes DO Patient is a 41 year old male with a hx of CHF, HTN, cyclic vomiting, chronic pain on oxycodone, EtOH abuse, and ventricular compaction syndrome on warfarin who presents to the ED complaining of nausea and vomiting onset 6 days ago. He was seen in the department 2 days ago and 2 days before that for the same symptoms. He had some relief but his symptoms returned this morning. Associated symptoms include diarrhea. He denies hematemesis, hematochezia, or any other symptoms. He took Zofran and Reglan this morning. Nursing Notes Stated Complaint: CYCLIC VOMITING Chief Complaint: Male Abdominal Pain Nursing Notes Reviewed: Yes Allergies: Coded Allergies: promethazine (Verified Allergy, Unknown, hallucinations, 06/20/17) hydrocodone (Verified Adverse Reaction, Mild, itching, 06/20/17) Scheduled Dicyclomine (Bentyl) 10 Mg Capsule 20 MG PO BID Furosemide (Lasix) 20 Mg Tablet 20 MG PO DAILY Lisinopril (Lisinopril) 20 Mg Tablet 20 MG PO BID Metoclopramide (Reglan) 10 Mg Tablet 10 MG PO TID Promethazine (Promethazine) 12.5 Mg Tablet 25 MG PO DAILY Warfarin Sodium (Warfarin Sodium) 10 Mg Tablet 10 MG PO DAILY Scheduled PRN Ondansetron ODT (Zofran ODT) 4 Mg Tablet 4 MG PO Q4H PRN PRN For Nausea Ondansetron ODT (Ondansetron ODT) 8 Mg Tab.rapdis 8 MG PO Q4H PRN PRN For Nausea General Time Seen by MD: 06:02 Chief Complaint Other (Vomiting ) Hx Obtained From: Patient, Spouse Arrived By: Walk-in Sudden in Onset?: Yes Onset Occurred: 6 days ago Symptom Duration: Since onset Recent Healthcare: Recent doctor visit Similar Sx Previous: Yes Risk Factors )( AAA Risk Stratification Hypertension SmokingNo Prior AAA Risk factors reviewed Past Medical History 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 denies THC use Past Medical History Anxiety Heart defect- nonspecific Hypertension Chronic pain on Oxycodone Cyclical vomiting - uncertain etiology CHF with underlying cause unknown - last EF 11/29 30-35% "Ventricular compaction syndrome" - on Warfarin Alcohol abuse Depression Past Surgical History Testicular hernia repair Hand and finger surg. Adnoids Reports: Cholecystectomy Smoking History Current Every Day Smoker Social History Alcohol Use: "Social" Drug Use: Denies drug use Other Social History: Smokeless tobacco, Good social support, Local resident Ambulatory Status Independent Review of Systems GI: Reports: Diarrhea, Nausea, Vomiting, Denies: Hematemesis, Hematochezia Complete sys rev & neg: except as marked. Physical Exam Initial Vital Signs Vital Signs (First) Date Time Temp Pulse Resp B/P Pulse Ox O2 Delivery O2 Flow Rate FiO2 06/20/17 05:34 36.6 91 22 170/112 100 Room Air Initial VS: Reviewed, Vital signs abnormal Head / Eyes: Atraumatic, Normocephalic Neck: Full range of motion Skin: Warm, Dry Neurologic: Alert, Oriented, Nonfocal Psychiatric: Mood/affect normal, Behavior normal, Normal thought content General/Constitutional: Awake, Alert Distress / Hydration: Positive: Distress moderate Respiratory / Chest: Atraumatic, Breath sounds NL, Breath sounds = bilat, No respiratory distress Cardiovascular: Heart rate NL, Regular rhythm, Heart sounds NL Abdomen: Atraumatic, Soft Back: Inspection NL Interpretation & Diagnostics Lab Results Interpretation Result Diagram: 06/20/17 0555 06/20/17 0555 Test 06/20/17 05:55 White Blood Count 8.6th/mm3 (3.8-10.1) Red Blood Count 3.83mil/mm3 (4.40-5.80) Hemoglobin 12.0g/dL (13.8-17.2) Hematocrit 34.6% (41.0-50.0) Mean Corpuscular Volume 90.3fL (81-100) Mean Corpuscular Hemoglobin 31.3pg (27.0-35.0) Mean Corpuscular Hemoglobin Concent 34.7% (32.0-37.0) Red Cell Distribution Width 13.7% (12.3-15.4) Platelet Count 351bil/L (150-400) Neutrophils (%) (Auto) 46.0% (40-74) Lymphocytes (%) (Auto) 42.0% (14-46) Monocytes (%) (Auto) 9.9% (4-12) Eosinophils (%) (Auto) 1.7% (0-5) Basophils (%) (Auto) 0.2% (0-3) Hold Purple Top Tube Received (Received) Prothrombin Time 21.3sec (8.1-12.5) Prothromb Time International Ratio 1.96ratio Hold Blue Top Tube Received (Received) Sodium Level 141mEq/L (134-144) Potassium Level 3.1mEq/L (3.5-5.2) Chloride Level 104mEq/L (97-108) Carbon Dioxide Level 23mmol/L (18-29) Blood Urea Nitrogen 3mg/dL (6-24) Creatinine 0.46mg/dL (0.76-1.27) Estimat Glomerular Filtration Rate 214mL/min (>59) Glucose Level 93mg/dL (60-99) Calcium Level 8.6mg/dL (8.5-10.1) Magnesium Level 1.9mg/dL (1.6-2.6) Total Bilirubin 0.3mg/dL (0.0-1.2) Aspartate Amino Transf (AST/SGOT) 18U/L (0-50) Alanine Aminotransferase (ALT/SGPT) 12U/L (0-44) Alkaline Phosphatase 94U/L (25-150) Total Protein 7.0g/dL (6.4-8.4) Albumin 4.0g/dL (3.4-5.0) Lipase 33U/L (13-60) Hold [place] Top Tube Received (Received) Lab Results Interpretation: Drug screen negative for marijuana Re-Eval/Medical Decision Med Decision/Clinical Course Cyclical vomiting of unclear significance, patient is feeling better. He did receive 2 mg of Ativan and 6 mg of IV Dilaudid over the course of his ER visit. Tolerating oral intake. Labs are reassuring. Return and follow-up precautions given. Time of Eval: 09:05 )( Re-Eval Abdomen: Soft Re-Evaluation/Progress Note: Rechecked pt who requests more pain medication. Discussed plan for 1 more dose and then PO trial. Patient understands and agrees with plan. All questions addressed at this time. Time of Eval: 09:59 )( Re-Eval Abdomen: Soft Re-Evaluation/Progress Note: Pt tolerated PO's without difficulty in the department. Discussed plan for discharge. Patient understands and agrees with plan. All questions addressed at this time. Counseled Regarding: Diagnosis, Lab results, Need for follow-up, When/why to return to ED Discharge & Departure Primary Impression: Cyclical vomiting Vomiting Intractability: unspecified Nausea presence: unspecified Qualified Code: G43.A0 - Cyclical vomiting, not intractable Disposition: Home Vital Signs - All Vital Signs Date Time Temp Pulse Resp B/P Pulse Ox O2 Delivery O2 Flow Rate FiO2 06/20/17 10:22 86 16 115/73 99 Room Air 06/20/17 08:20 82 18 169/110 99 Room Air 06/20/17 05:34 36.6 91 22 170/112 100 Room Air )( All Prior VS Reviewed: Yes Condition: Improved Additional Instructions: While in the ER you received multiple doses of Ativan, Dilaudid, and Zofran. Your labs are reassuring. Follow-up with regular doctor in the next few days. Return to the ER as needed. Referrals: Camelia Taylor DO (PCP) Rohini Attestation Portions of this note were transcribed by Rossy Carrillo. I, Dr. Cespedes personally performed the history, physical exam and medical decision-making; I reviewed and confirmed the accuracy of the information in the transcribed note. Signed by: Rohini Black, 06/20/17 copies to: Camelia Taylor Timothy S DO Jun 20, 2017 06:04 ROSSY CARRILLO Jun 20, 2017 06:25
[2017-06-20] MEDS ORDERED: 0.9% Sodium Chloride 1,000 ML IV ONE (06:20)
[2017-06-20] MEDS ORDERED: HYDROmorphone 1 mg/mL Inj IVPUSH ONE (06:20)
[2017-06-20] MEDS ORDERED: Ondansetron 2 mg/mL 2 mL Inj IVPUSH PRN (06:20)
[2017-06-20 06:34] LABS: BASOPHILS % (AUTO) 0.2 % (0-3); EOSINOPHILS % (AUTO) 1.7 % (0-5); MONOCYTES % (AUTO) 9.9 % (4-12); Mean Corpuscular Hemoglobin 31.3 pg (27.0-35.0); Mean Corpuscular Volume 90.3 fL (81-100); Platelet Count 351 bil/L (150-400)
[2017-06-20 07:08] LABS: INR 1.96 ratio; Magnesium 1.9 mg/dL (1.6-2.6)
[2017-06-20] MEDS: HYDROmorphone 1 mg/mL Inj IVPUSH PRN ×5 (07:15→10:09)
[2017-06-20 08:20] VITALS: BP 169/110; PULSE 82; RESP 18; O2SAT 99
[2017-06-20 10:22] VITALS: BP 115/73; PULSE 86; RESP 16; O2SAT 99
== END 2017-06-20 10:23 | disposition home or self-care (01) ==
LOC: SED 05:28
DX: G43.A0 Cyclical vomiting, in migraine, not intractable (principal); I11.0 Hypertensive heart disease with heart failure; I50.9 Heart failure, unspecified; F17.200 Nicotine dependence, unspecified, uncomplicated; Z88.5 Allergy status to narcotic agent; Z88.8 Allergy status to other drugs, medicaments and biological substances; Z79.01 Long term (current) use of anticoagulants
CPT/HCPCS: 36415; 80053; 83690; 83735; 85025; 85610; 96361; 96374; 96375; 96376; 99285; J1170; J2060; J2405; J7030

== ENCOUNTER 2017-07-20 01:33 | Emergency (ER) | payer OTHER ==
[~2017-07-20] VITALS: Ht 172.7 cm; Wt 68.2 kg
[2017-07-20 01:38] VITALS: BP 168/111; PULSE 89; RESP 20; O2SAT 98
--- NOTE | 2017-07-20 01:42 | ED.REPORT ---
HPI-NVD Date of Service Jul 20, 2017 ED Provider: Mitchel Kimble MD The pt is a 41 y/o male with a hx of CHF, HTN, cyclic vomiting, chronic pain on oxycodone, EtOH abuse, and ventricular compaction syndrome on warfarin who presents to the ED complaining of vomiting onset 4 hours ago while he was eating a hamburger. Associated sx include nausea, "9/10" non-radiating and stabbing epigastric pain, diarrhea, and dry heaving. Nothing, including hot showers, improves his sx. He denies hematemesis and THC use. He has a 10 year hx of similar sx, which only resolve with Dilaudid and ondansetron. Nursing Notes Stated Complaint: VOMITING Chief Complaint: Male Abdominal Pain Nursing Notes Reviewed: Yes Allergies: Coded Allergies: promethazine (Verified Allergy, Unknown, hallucinations, 06/20/17) hydrocodone (Verified Adverse Reaction, Mild, itching, 06/20/17) Scheduled Dicyclomine (Bentyl) 10 Mg Capsule 20 MG PO BID Furosemide (Lasix) 20 Mg Tablet 20 MG PO DAILY Lisinopril (Lisinopril) 20 Mg Tablet 20 MG PO BID Metoclopramide (Reglan) 10 Mg Tablet 10 MG PO TID Promethazine (Promethazine) 12.5 Mg Tablet 25 MG PO DAILY Warfarin Sodium (Warfarin Sodium) 10 Mg Tablet 10 MG PO DAILY Scheduled PRN Ondansetron ODT (Zofran ODT) 4 Mg Tablet 4 MG PO Q4H PRN PRN For Nausea Ondansetron ODT (Ondansetron ODT) 8 Mg Tab.rapdis 8 MG PO Q4H PRN PRN For Nausea General Time Seen by MD: 01:41 Chief Complaint Vomiting Hx Obtained From: Patient Arrived By: Walk-in Onset Occurred: 1 - 4 hours ago Symptom Duration: Since onset Location: : Epigastric Quality: Painful Radiation: : Does not radiate Severity: Current: Pain level 9 out of 10 Severity: Maximum: Pain level 9 out of 10 Recent Healthcare: Recent doctor visit Similar Sx Previous: Yes Past Medical History Past Medical History Notes: [employer] - [place] Last echo 11/2016: Dilated left ventricle with global hypokinesis but more significant hypokinesis of the septal segments. 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 denies THC use Past Medical History Anxiety Heart defect- nonspecific Hypertension Chronic pain on Oxycodone Cyclical vomiting - uncertain etiology CHF with underlying cause unknown - last EF 11/29 30-35% "Ventricular compaction syndrome" - on Warfarin Alcohol abuse Depression Past Surgical History Testicular hernia repair Hand and finger surg. Adnoids Reports: Cholecystectomy Smoking History Current Every Day Smoker Social History Alcohol Use: "Social" Drug Use: Denies drug use Other Social History: Smokeless tobacco, Good social support, Local resident Ambulatory Status Independent Review of Systems +dry heaving GI: Reports: Abdominal pain, Diarrhea, Nausea, Vomiting, Denies: Hematemesis Complete sys rev & neg: except as marked. Physical Exam Initial Vital Signs Vital Signs (First) Date Time Temp Pulse Resp B/P Pulse Ox O2 Delivery O2 Flow Rate FiO2 07/20/17 01:38 37.0 89 20 168/111 98 Room Air Initial VS: Reviewed, Vital signs abnormal Head / Eyes: Atraumatic, Normocephalic Neck: Supple, Non-tender, Full range of motion Extremities: Vascular intact, Neuro intact, No swelling, No tenderness Skin: Warm, Dry, No cyanosis Neurologic: Alert, Oriented, Nonfocal General/Constitutional: Awake, Alert, Cooperative Distress / Hydration: Positive: Distress moderate Uncooperative with exam due to hyperactivity. Abdomen: Atraumatic ENT: Atraumatic, Airway patent Mouth: Positive: Mucous membranes dry Respiratory / Chest: Atraumatic, Breath sounds NL, Breath sounds = bilat, No respiratory distress, No rales, No rhonchi, No wheezing Cardiovascular: Heart rate NL, Regular rhythm, Heart sounds NL, No gallop, No murmurs, No rubs No edema Interpretation & Diagnostics Lab Results Interpretation Test 07/20/17 01:45 Hold Purple Top Tube Received (Received) Hold Blue Top Tube Received (Received) Hold [place] Top Tube Received (Received) Re-Eval/Medical Decision Med Decision/Clinical Course 41-year-old male with cyclical vomiting who presents to the emergency room several times per year with intractable pain and nausea and vomiting. He does not use marijuana. He was treated with hydration, lorazepam, ondansetron, and hydromorphone in with eventual good relief of his discomfort. He will follow up with his primary doctor. Source of Hx: Old records Re-Evaluation/Progress : Time of Eval: 04:47 Re-Evaluation/Progress Note: Rechecked pt. Discussed lab results, diagnosis and plan to discharge. Pt understands and agrees with the plan. F/U instruction and RTER warning given. All questions addressed. Counseled Regarding: Diagnosis, Lab results, Need for follow-up, When/why to return to ED Discharge & Departure Impression: Primary Impression: Cyclic vomiting syndrome Vomiting Intractability: non-intractable Nausea presence: with nausea Qualified Code: G43.A0 - Cyclical vomiting, not intractable Disposition: Home Discharge Condition All VS Reviewed: Yes Condition: Improved Patient Instructions: Acute Nausea and Vomiting (ED) Additional Instructions: You received fluid, Dilaudid, Ativan, and Zofran. Home to rest. Resume your regular home regimen. Follow-up with your regular doctor as needed. Referrals: Camelia Taylor DO (PCP) Scribe Attestation Portions of this note were transcribed by Shorty Franklin. I,, personally performed the history,physical exam and medical decision-making;I reviewed and confirmed the accuracy of the information in the transcribed note. Signed by Rohini Amaya. 07/20/17 copies to: Camelia Taylor Howard L MD Jul 20, 2017 01:42 Shorty Franklin Jul 20, 2017 02:06
[2017-07-20] MEDS ORDERED: Pantoprazole 4 mg/mL 10 mL Inj IVPUSH ONE (02:00)
[2017-07-20] MEDS ORDERED: 0.9% Sodium Chloride 1,000 ML IV ONE (02:00)
[2017-07-20] MEDS: Ondansetron 2 mg/mL 2 mL Inj IVPUSH PRN ×3 (02:18→04:28)
[2017-07-20] MEDS: HYDROmorphone 1 mg/mL Inj IVPUSH PRN ×4 (02:18→03:29)
[2017-07-20] MEDS ORDERED: HYDROmorphone 1 mg/mL Inj IVPUSH PRN (04:20)
[2017-07-20 05:22] VITALS: BP 138/85; PULSE 86; RESP 16; O2SAT 98
== END 2017-07-20 05:15 | disposition home or self-care (01) ==
LOC: SED 01:33
DX: G43.A0 Cyclical vomiting, in migraine, not intractable (principal); R11.0 Nausea; R10.13 Epigastric pain; R19.7 Diarrhea, unspecified; I11.0 Hypertensive heart disease with heart failure; I50.9 Heart failure, unspecified; F41.8 Other specified anxiety disorders; G89.29 Other chronic pain; F17.200 Nicotine dependence, unspecified, uncomplicated; Z90.49 Acquired absence of other specified parts of digestive tract; Z98.890 Other specified postprocedural states; Z79.01 Long term (current) use of anticoagulants; Z88.5 Allergy status to narcotic agent; Z88.8 Allergy status to other drugs, medicaments and biological substances
CPT/HCPCS: 96361; 96374; 96375; 96376; 99284; J1170; J2060; J2405; J7030; S0164